=== PATIENT | female | born 1990 | race Caucasian/White ===

== ENCOUNTER 2022-05-31 19:37 | Emergency (ER) | payer OTHER ==
--- OUTSIDE RECORDS SUMMARY | 2022-05-31 19:46 | XMS REPORT | Continuity of Care Document ---
:1990 Author Organization [facility] t Address [address] [place] [address] Care Team Providers Name Role Phone Azeb Mireles PA-C Primary Care Physician Whitley Jo Attending Clinician Unavailable Avery Wood Attending Clinician Unavailable Velma Damon Attending Clinician Unavailable Kelby Cota Attending Clinician Unavailable Jake Calixto MD Attending Clinician [phone] JAKE CALIXTO Attending Clinician Unavailable DR MILTON BARBOSA Attending Clinician Unavailable Ashley Attending Clinician Unavailable Keyshawn Salazar MD Attending Clinician Sydnee Romo MD Attending Clinician [phone] Stefano BROWN, Mara Lamb Attending Clinician DR FATIMAH BARBOSA Attending Clinician Unavailable , DR GARCIA Attending Clinician Unavailable Kanwal Carver Attending Clinician Unavailable Whitley Jo Admitting Clinician Unavailable Physician, No Primary or Family Admitting Clinician Unavailalvaro BARBOSA, DR ROSE Admitting Clinician Unavailable Chi_Azeb Admitting Clinician Unavailable DR FATIMAH BARBOSA Admitting Clinician Unavailable , DR GARCIA Admitting Clinician Unavailable Payers Payer Name Policy Type Policy Number Effective Date Expiration Date Felipe barnard [place] [id number] 2019 ADVANTAGE (O) 00:00:00 Problems Condition Condition Condition Status Onset Resolution Last Treating Co mments Source Name Details Category Date Date Treatment Clinician Date Mixed Mixed Problem Active [place] anxiety Anxiety 8-13 da and and 00:00: [facility] depressive Depressive 00 al disorder Disorder Health [facility] Program Disease Active [facility] [address] [facility] 00:00: Hosp[facility] 00 l Urinary Urinary Problem Active 2014-11-11 M emoria tract tract 10-15 02:04:08 l infectious infectious 00:00: He rmann disease disease 00 (disorder) (disorder) Active 10/15/2014 Problem 11/11/2014 Data migrated from [employer] on 10/24/14.Pradip a migrated from [employer] on 10/24/14.Pradip a migrated from [employer] on 09/19/14. [facility] [place] Varicose Varicose Problem Active 2014-11-11 Memoria veins of veins of - 02:04:08 l lower lower 00:00: Elias extremity extremity 00 (disorder) (disorder) Active 10/04/2014 Problem 11/11/2014 Data migrated from [employer] on 10/24/14. [facility] [place] Esophagiti Esophagit Problem Active 2014-11-11 Memoria s is 6-12 02:04:08 l (disorder) (disorder) 00:00: He rmann Active 00 09/28/2014 Problem 11/11/2014 Data migrated from [employer] on 10/24/14. [facility] [place] Gastritis Gastritis Problem Active 2014-11-11 Memoria (disorder) (disorder) 6- 02:04:08 l Active 00:00: [place] 09/28/2014 00 Problem 11/11/2014 Data migrated from [employer] on 10/24/14. [facility] [place] Nausea and Nausea Problem Active 2014-11-11 Mem[facility] vomiting and 09-14 02:04:08 l (disorder) vomiting 00:00: Herm pelon (disorder) 00 Active 09/14/2014 Problem 11/11/2014 Data migrated from [employer] on 10/24/14. [facility] [place] Generalize Generaliz Problem Active 2014-11-11 Memoria d ed 08-13 02:04:08 l abdominal abdominal 00:00: Herm pelon pain pain 00 (finding) (finding) Active 08/13/2014 Problem 11/11/2014 Data migrated from [employer] on 10/24/14. [facility] [place] CHEST PAIN CHEST Diagnosis Active 2014-08-11 [facility] PAIN 08-11 15:32:00 l Active 13:00: [place] 08/11/2014 00 [place] Allergic Allergic Problem Active 2014-11-11 Mem[facility] rhinitis rhinitis 12-08 02:04:08 l (disorder) (disorder) 00:00: He rmann Active 00 12/08/2013 Problem 11/11/2014 Data migrated from [employer] on 09/15/14. [facility] [place] Disorder Disorder Problem Active 2014-11-11 Memoria of nasal of nasal 12-08 02:04:08 l cavity cavity 00:00: [place] (disorder) (disorder) 00 Active 12/08/2013 Problem 11/11/2014 Data migrated from [employer] on 09/15/14. [facility] [place] Anxiety Anxiety Problem Active 2014-11-11 Me moria disorder disorder 3-10 02:04:08 l (disorder) (disorder) 00:00: He rmann Active 00 06/26/2013 Problem 11/11/2014 Data migrated from [employer] on 10/24/14. [facility] [place] Problem Active 2014-11-11 Memoria examinatio examinatio 1- 02:04:08 l n normal n normal 00:00: Rafael n (finding) (finding) 00 Active 05/19/2013 Problem 11/11/2014 Data migrated from [employer] on 09/15/14. [facility] [place] Problem Active 2014-11-11 Memoria care care - 02:04:08 l (regime/th (regime/th 00:00: He rmann erapy) erapy) 00 Active 11/29/2012 Problem 11/11/2014 Data migrated from [employer] on 09/15/14. [facility] [place] Anxiety Anxiety Problem Resolve 2014-11-11 M emoria (finding) (finding) d 02:04:08 l Resolved Elias Problem 11/11/2014 [facility] [place] Asthma Asthma Problem Resolve 2014-11-11 Mem oria (disorder) (disorder) d 02:04:08 l Resolved [place] Problem 11/11/2014 Childhood [facility] [place] Acute Acute Problem Resolve 2014-11-11 2014-11-11 Memoria bronchitis bronchitis d 3- 02:04:08 02:04:08 l (disorder) (disorder) 00:00: He rmann Resolved 00 06/26/2013 Problem 11/11/2014 Data migrated from [employer] on 10/24/14. [facility] [place] Patient Patient Problem Resolve 2014-11-11 2014-11-11 Memoria currently currently d 1-15 02:04:08 02:04:08 l 00:00: Rafael n (finding) (finding) 00 Resolved 05/03/2013 Problem 11/11/2014 [facility] [place] Gastroente Gastroent Problem Resolve 2014-11-11 2014-11-11 Memoria ritis eritis d 12-17 02:04:08 02:04:08 l (disorder) (disorder) 00:00: He rmann Resolved 00 12/18/2011 Problem 11/11/2014 Data migrated from [employer] on 11/03/14.Da ta migrated from [employer] on 11/02/14. [facility] [place] History of Past Illness Condition Condition Condition Status Onset Resolution Last Treating Co mments Source Name Details Category Date Date Treatment Clinician Date Discharge Discharge Problem 2014-08-14 2014-08-14 [place] Diagnosis: Diagnosis: 4-25 01:10:10 01:10:10 l Chest pain Chest pain 05:00: He matt 08/11/201408/14/2014 [place] Allergies, Adverse Reactions, Alerts Allergy Allergy Status Severity Reaction(s) Onset Inactive Treating Comm ents Source Name Type Date Date Clinician No Known DA Active [facility] 00 [facility] No Known DA Active [facility]17 [facility] 00 [facility] No Known DA Active [facility]: [facility] 00 [facility] No Known DA Active [facility] 7[facility]01 [facility] 00:[facility]: [facility] 00 [facility] No Known DA Active [facility]ie 2-13 [place] 00:[facility]: Health 00 are [place] No Known DA Active U 2013-04 [facility] 2-29 [facility] 00:[facility]: [facility]osp[facility] 00 [facility] NO KNOWN Allergy Active [facility] No Known DA Active [facility] s Family History Family Member Diagnosis Comments Start Date Stop Date Source Maternal grandmother Heart block [facility] Natural mother Rheum arthritis [facility] Social History Social Habit Start Date Stop Date Quantity Comments Source History of Cigarette Smoker Methodis t tobacco use Hospital History SDOH [facility] Alcohol Frequency Medical Center History SDOH [facility] Alcohol Std Medical Cente r Drinks History SDOH [facility] Alcohol Binge Medical Tristen ter History SDOH 2021-04-25 2021-04-[address] [facility] Alcohol Comment 00:00:00 00:00:00 Medical C enter Tobacco Comment 2021-04-25 2021-04-[address] [facility] 00:[facility]00 00:00:00 Medical Center Alcohol intake 2020-11-20 2020-11-20 Ex-drinker Taoist 00:00:00 00:00:00 (finding) Hospital Tobacco use and 2017-09-22 2017-09-22 Smokeless tobacco Me thodist exposure 00:00:00 00:00:00 non-user Hospital Sex Assigned At [birth year] Taoist 00:00:00 00:00:00 Hospital Smoking Status Start Date Stop Date Source Heavy Tobacco Smoker Patricio grande [facility] Ex-smoker 2017-09-22 00:00:00 2017-09-22 00:00:00 [facility] Social History 2014-08-11 20:09:21 [facility] Medications Ordered Filled Start Stop Current Ordering Indication Dosage Frequency Signature Comments Components Source Medication Medication Date Date Medication? Clinician (SIG) Name Name lamoTRIgine 2021-0 Yes 100mg QD Take [address] (LaMICtal) 1-08 [facility] 100 MG 09:50: mouth Medical tablet 57 daily. [place] traZODone 2021-0 Yes 150mg QD Take [address] (DESYREL) 1-08 mg by [facility] 150 MG 09:50: mouth Medical tablet 57 nightly. [place] busPIRone 2021-0 Yes 15mg Q.[id number] Take [address] (BUSPAR) 15 1-08 [id number] by mouth 3 [facility] MG tablet 09:50: 3D (three) Medic al 57 times Center daily. buPROPion 2021-0 Yes 300mg QD Take [address] (WELLBUTRIN 1-08 mg by [facility] XL) 300 MG 09:50: mouth Medica l 24 hr 57 daily. Center tablet clonazePAM 2021-0 Yes .5mg Take 0.[address] (KlonoPIN) 1-08 mg by [facility] 0.5 MG 09:50: mouth 2 Medical tablet 57 (two) Center times daily as needed for Anxiety. lamoTRIgine 2-0 Yes 100mg QD Take [address] (LaMICtal) 1-08 mg by [facility] 100 MG 09:50: mouth Medical tablet 57 daily. Center traZODone 2-0 Yes 150mg QD Take [address] (DESYREL) 1-08 mg by [facility] 150 MG 09:50: mouth Medical tablet 57 nightly. [place] busPIRone 2022-0 Yes 15mg Q.[id number] Take [address] (BUSPAR) 15 1-08 [id number] by mouth 3 [facility] MG tablet 09:50: 3D (three) Medic al 57 times Center daily. buPROPion 2022-0 Yes 300mg QD Take [address] (WELLBUTRIN 1-08 mg by [facility]ukes XL) 300 MG 09:50: mouth Medica l 24 hr 57 daily. Center tablet clonazePAM 2022-0 Yes .5mg Take 0.[address] (KlonoPIN) 1-08 mg by [facility]ukes 0.5 MG 09:50: mouth 2 Medical tablet 57 (two) Center times daily as needed for Anxiety. lamoTRIgine 2022-0 Yes 100mg QD Take [address] (LaMICtal) 1-08 mg by [facility] 100 MG 09:50: mouth Medical tablet 57 daily. Center traZODone 2022-0 Yes 150mg QD Take [address] (DESYREL) 1-08 mg by [facility] 150 MG 09:50: mouth Medical tablet 57 nightly. Center busPIRone 2022-0 Yes 15mg Q.[id number] Take [address] (BUSPAR) 15 1-08 [id number] by mouth 3 [facility] MG tablet 09:50: 3D (three) Medic al 57 times Center daily. buPROPion 2022-0 Yes 300mg QD Take [address] (WELLBUTRIN 1-08 mg by [facility]ukes XL) 300 MG 09:50: mouth Medica l 24 hr 57 daily. Center tablet clonazePAM 2-0 Yes .5mg Take 0.[address] (KlonoPIN) 1-08 mg by [facility]ukes 0.5 MG 09:50: mouth 2 Medical tablet 57 (two) Center times daily as needed for Anxiety. lamoTRIgine 2022-0 Yes 100mg QD Take [address] (LaMICtal) 1-08 mg by [facility] 100 MG 09:50: mouth Medical tablet 57 daily. Center traZODone 2022-0 Yes 150mg QD Take [address] (DESYREL) 1-08 mg by [facility]ukes 150 MG 09:50: mouth Medical tablet 57 nightly. Center busPIRone 2022-0 Yes 15mg Q.[id number] Take [address] (BUSPAR) 15 1-08 [id number] by mouth 3 [facility] MG tablet 09:50: 3D (three) Medic al 57 times Center daily. buPROPion 2022-0 Yes 300mg QD Take [address] (WELLBUTRIN 1-08 mg by [facility]ukes XL) 300 MG 09:50: mouth Medica l 24 hr 57 daily. Center tablet clonazePAM 2021-0 Yes .5mg Take 0.[address] (KlonoPIN) 1-08 mg by [facility]ukes 0.5 MG 09:50: mouth 2 Medical tablet 57 (two) Center times daily as needed for Anxiety. clonazePAM 2022-0 Yes .5mg Take 0.[address] (KlonoPIN) 1-08 mg by Lukes 0.5 MG 09:50: mouth 2 Medical tablet 57 (two) Center times daily as needed for Anxiety. lamoTRIgine 2021-0 Yes 100mg QD Take [address] (LaMICtal) 1-08 mg by [facility] 100 MG 09:50: mouth Medical tablet 57 daily. Center traZODone 2021-0 Yes 150mg QD Take [address] (DESYREL) 1-08 mg by [facility] 150 MG 09:50: mouth Medical tablet 57 nightly. Center busPIRone 2021-0 Yes 15mg Q.[id number] Take [address] (BUSPAR) 15 1-08 [id number] by mouth 3 [facility] MG tablet 09:50: 3D (three) Medic al 57 times Center daily. buPROPion 2021-0 Yes 300mg QD Take [address] (WELLBUTRIN 1-08 mg by [facility]ukes XL) 300 MG 09:50: mouth Medica l 24 hr 57 daily. Center tablet butalbital- 2020- No 1{tbl} Q4H Take 1 M ethodi acetaminoph 8-04 08-09 tablet by [facility] 00:00: 04:59 mouth Hospita (Esgic) 00 :00 every 4 l 50-325-40 (four) mg per hours as tablet needed for headaches for up to 4 days. butalbital- 2020-2020- No 1{tbl} Q4H Take 1 M ethodi acetaminoph 8-04 08-09 tablet by [facility] 00:00: 04:59 mouth Hospita (Esgic) 00 :00 every 4 l 50-325-40 (four) mg per hours as tablet needed for headaches for up to 4 days. acetaminoph 2020- [place] [id number] 1{tbl} Q6H Take 1-2 Methodi en-codeine 7-29 10-[address] (TYLENOL 00:00: 04:59 mouth Hospita WITH 00 :00 every 6 l CODEINE #3) (six) 300-30 mg hours as per tablet needed for moderate pain for up to 4 days .acute pain. acetaminoph 2020- [place] [id number] 1{tbl} Q6H Take 1-2 Methodi en-codeine 7-[address] (TYLENOL 00:00: 04:59 mouth Hospita WITH 00 :00 every 6 l CODEINE #3) (six) 300-30 mg hours as per tablet needed for moderate pain for up to 4 days .acute pain. acetaminoph 2020- [place] [id number] 1{tbl} Q6H Take 1-2 Methodi en-codeine 3-[address] (TYLENOL 00:00: 04:59 mouth Hospita WITH 00 :00 every 6 l CODEINE #3) (six) 300-30 mg hours as per tablet needed for severe pain for up to 14 days .acute pain. acetaminoph 2020- No [id number] 1{tbl} Q6H Take 1-2 Methodi en-codeine 3-[address] (TYLENOL 00:00: 04:59 mouth Hospita WITH 00 :00 every 6 l CODEINE #3) (six) 300-30 mg hours as per tablet needed for severe pain for up to 14 days .acute pain. ranitidine 2018-0 Yes 150mg Q.5D Take 150 [facility] (ZANTAC) 6-[address] 150 MG 11:41: mouth 2 Hospita tablet 46 (two) l times a day. ranitidine 2018-0 Yes 150mg Q.5D Take 150 [facility] (ZANTAC) 6-[address] 150 MG 11:41: mouth 2 Hospita tablet 46 (two) l times a day. ranitidine 2018-0 Yes 150mg Q.5D Take 150 [facility] (ZANTAC) 6-[address] 150 MG 11:41: mouth 2 Hospita tablet 46 (two) l times a day. ranitidine 2018-0 Yes 150mg Q.5D Take 150 [facility] (ZANTAC) 6-[address] 150 MG 11:41: mouth 2 Hospita tablet 46 (two) l times a day. ranitidine Yes 150mg Q.5D Take 150 [facility] (ZANTAC) 6-[address] 150 MG 11:41: mouth 2 Hospita tablet 46 (two) l times a day. ranitidine Yes 150mg Q.5D Take 150 [facility] (ZANTAC) 6-[address] 150 MG 11:41: mouth 2 Hospita tablet 46 (two) l times a day. ranitidine Yes 150mg Q.5D Take 150 [facility] (ZANTAC) 6-[address] 150 MG 11:41: mouth 2 Hospita tablet 46 (two) l times a day. Saline No Notes: Memoria Flush 0.9% 4-25 (Same as: l 19:37: BD [place] 00 Posiflush) [place] Fe [place]a Fe No [place]uro[place]a [place] 1.5/30 (28) 1.5/30 (28) Fe 1.5/30 da 1.5 mg-30 1.5 mg-30 (28) 1.5 E [facility]iscop mcg (21)/75 mcg (21)/75 mg-30 mcg al mg (7) mg (7) (21)/75 mg Healt h tablet tablet (7) tablet Outre ac h Program bupropion bupropion No bupropion [place] HCl XL 300 HCl XL 300 HCl XL 300 da mg 24 hr mg 24 hr mg 24 hr Epi scop tablet, tablet, tablet, al extended extended extended Hea lth release release release Outrea c TAKE 1 TAKE 1 TAKE 1 h TABLET BY TABLET BY TABLET BY Program MOUTH EVERY MOUTH EVERY MOUTH MORNING MORNING EVERY MORNING buspirone buspirone No buspirone [place] 15 mg 15 mg 15 mg da tablet TAKE tablet TAKE tablet [facility] 1 TABLET BY 1 TABLET BY TAKE 1 al MOUTH THREE MOUTH THREE TABLET BY Health TIMES DAILY TIMES DAILY MOUTH Outreac THREE h TIMES Program DAILY Celebrex Celebrex No 1capsul Q1D Celebrex [place] 200 mg 200 mg e(s) 200 mg da capsule capsule capsule [facility] p Take 1 Take 1 Take 1 al capsule capsule capsule Health every day every day every day Outreac by oral by oral by oral h route as route as route as Pro gram needed. for needed. for needed. pain pain for pain clonazepam clonazepam No clonazepam [place] 0.5 mg 0.5 mg 0.5 mg da tablet TAKE tablet TAKE tablet [facility] 1 TABLET BY 1 TABLET BY TAKE 1 al MOUTH TWICE MOUTH TWICE TABLET BY Health DAILY DAILY MOUTH Outrea c NEEDED FOR NEEDED FOR TWICE h SEVERE SEVERE DAILY Program ANXIETY AND ANXIETY AND NEEDED FOR PANIC PANIC SEVERE ATTACKS ATTACKS ANXIETY AND PANIC ATTACKS lamotrigine lamotrigine No lamotrigin [place] 100 mg 100 mg e 100 mg da tablet TAKE tablet TAKE tablet [facility] 1 TABLET BY 1 TABLET BY TAKE 1 al MOUTH TWICE MOUTH TWICE TABLET BY Health DAILY DAILY MOUTH Outreac TWICE h DAILY Program meloxicam meloxicam No meloxicam [place] 7.5 mg 7.5 mg 7.5 mg da tablet TAKE tablet TAKE tablet [facility] 1 TABLET BY 1 TABLET BY TAKE 1 al MOUTH TWICE MOUTH TWICE TABLET BY Health DAILY DAILY MOUTH Outrea c NEEDED FOR NEEDED FOR TWICE h PAIN PAIN DAILY Program NEEDED FOR PAIN Nexplanon Nexplanon No Nexplanon [place] 68 mg 68 mg 68 mg da subdermal subdermal subdermal [facility] implant implant implant al Health Outreac h Program tamoxifen tamoxifen No tamoxifen [place] 10 mg 10 mg 10 mg da tablet TAKE tablet TAKE tablet [facility] 1 TABLET BY 1 TABLET BY TAKE 1 al MOUTH TWICE MOUTH TWICE TABLET BY Health DAILY FOR DAILY FOR MOUTH Outr eac 10 DAYS 10 DAYS TWICE h DAILY FOR Program 10 DAYS trazodone trazodone No trazodone [place] 100 mg 100 mg 100 mg da tablet TAKE tablet TAKE tablet [facility] 1 AND 1/2 1 AND 1/2 TAKE 1 AND al TABLETS BY TABLETS BY 1/2 Hea [facility] MOUTH AT MOUTH AT TABLETS BY O [facility] BEDTIME BEDTIME MOUTH AT h BEDTIME Program Immunizations Ordered Immunization Filled Immunization Date Status Commen ts Source Name Name influenza, influenza, 2020-04-01 Completed [place] injectable, injectable, 15:22:00 [facility] quadrivalent, quadrivalent, Outreach Program preservative free preservative free Tdap Tdap 2015-04-19 Completed [place] 00:00:00 [facility] Vital Signs Vital Name Observation Time Observation Value Comments Source HEIGHT 2021-04-25 17:42:00 162.6 cm WEIGHT 2021-04-25 17:42:00 70.761 kg HEIGHT 2021-04-25 17:42:00 162.6 cm WEIGHT 2021-04-25 17:42:00 70.761 kg Height 2021-04-10 18:16:00 165.1 CM Weight 2021-04-10 18:16:00 70.3 KG BP Diastolic 2021-01-24 00:00:00 80 mm[Hg] [place] [facility] Height 2021-01-24 00:00:00 65 [in_i] [place] [facility] BMI (Body Mass 2021-01-24 00:00:00 25.4 kg/m2 [facility] psychiatric nursing assistant Index) [facility] BP Systolic 2021-01-24 00:00:00 113 mm[Hg] [place] [facility] Body Weight 2021-01-24 00:00:00 2438 [oz_av] [place] [facility] BP Diastolic 2020-08-14 00:00:00 78 mm[Hg] [place] [facility] Height 2020-08-14 00:00:00 65 [in_i] [place] [facility] BMI (Body Mass 2020-08-14 00:00:00 25.5 kg/m2 [facility] psychiatric nursing assistant Index) [facility] BP Systolic 2020-08-14 00:00:00 126 mm[Hg] [place] [facility] Body Weight 2020-08-14 00:00:00 2450 [oz_av] [place] [facility] BP Diastolic 2020-04-01 00:00:00 77 mm[Hg] [place] [facility] Height 2020-04-01 00:00:00 65 [in_i] [place] [facility] BMI (Body Mass 2020-04-01 00:00:00 26.6 kg/m2 [place] [facility] assistant Index) [facility] BP Systolic 2020-04-01 00:00:00 113 mm[Hg] [place] [facility] Body Weight 2020-04-01 00:00:00 2560 [oz_av] [place] [facility] BP Diastolic 2019-12-29 00:00:00 82 mm[Hg] [place] [facility] Height 2019-12-29 00:00:00 65 [in_i] [place] [facility] BMI (Body Mass 2019-12-29 00:00:00 26 kg/m2 [place] [facility] nursing assistant Index) [facility] BP Systolic 2019-12-29 00:00:00 117 mm[Hg] [place] [facility] Body Weight 2019-12-29 00:00:00 2499 [oz_av] [place] [facility] Height 2019-12-15 10:31:00 165.1 CM Weight 2019-12-15 10:31:00 72.57 KG Weight 2019-11-27 10:35:00 72.57 KG Height 2019-11-27 10:35:00 165.1 CM BP Diastolic 2019-11-01 00:00:00 73 mm[Hg] [place] [facility] Height 2019-11-01 00:00:00 65 [in_i] [place] [facility] BMI (Body Mass 2019-11-01 00:00:00 24.4 kg/m2 [place] [facility] nursing assistant Index) [facility] BP Systolic 2019-11-01 00:00:00 103 mm[Hg] [place] [facility] Body Weight 2019-11-01 00:00:00 2344 [oz_av] [place] [facility] Systolic blood 2021-04-26 11:16:00 113 mm[Hg] [facility] Diastolic blood 2021-04-26 11:16:00 73 mm[Hg] [facility] Heart rate 2021-04-26 11:16:00 78 /min [facility] Respiratory rate 2021-04-26 11:16:00 18 /min [facility] Oxygen saturation in 2021-04-26 11:16:00 99 /min [facility] Arterial blood by Medical Ce nter Pulse oximetry Body temperature 2021-04-26 09:19:00 35.67 Sandra [facility] Body height 2021-04-25 17:42:00 162.6 cm [facility] Body weight 2021-04-25 17:42:00 70.761 kg [facility] BMI 2021-04-25 17:42:00 26.78 kg/m2 [facility] Systolic blood 2020-11-21 03:49:00 122 mm[Hg] [facility] pressure Diastolic blood 2020-11-21 03:49:00 69 mm[Hg] [facility] pressure Heart rate 2020-11-21 03:49:00 77 /min [facility] Respiratory rate 2020-11-21 03:49:00 16 /min [facility] Oxygen saturation in 2020-11-21 03:49:00 97 /min Arterial blood by Pulse oximetry Body temperature 2020-11-21 00:33:05 36.94 Sandra [facility] Body height 2020-06-25 14:47:00 165.1 cm [facility] Body weight 2020-06-25 14:47:00 68.04 kg [facility] BMI 2020-06-25 14:47:00 24.96 kg/m2 [facility] Systolic (mm Hg) 2014-08-11 21:28:00 Jayy yazan [place] Diastolic (mm Hg) 2014-08-11 21:28:00 Mem orial [place] Heart Rate 2014-08-11 21:28:[address] [facility] Respitory Rate 2014-08-11 21:28:00 Masoodori al Elias Temperature Oral (F) 2014-08-11 21:28:00 98.8 F [facility] [place] Height 2014-08-11 18:57:[address] [facility] BMI Calculated 2014-08-11 18:57:00 Simon Sher Weight 2014-08-11 18:57:00 [facility] 2014-08-11 18:57:00 Parviz Griffin Systolic (mm Hg) 2014-08-11 18:57:00 Jayy Griffin Diastolic (mm Hg) 2014-08-11 18:57:00 Mem katie Griffin Temperature Oral (F) 2014-08-11 18:57:00 99.1 F [facility] Respitory Rate 2014-08-11 18:57:00 Simon ramsey [facility]as Procedures Procedure Date / Time Performing Clinician Source Performed ECG 12-LEAD 2021-04-25 21:53:06 [facility] ECG 12-LEAD 2021-04-25 21:53:06 Unknown, H[facility] ED ECG INTERPRETATION 2021-04-25 21:53:00 [facility] SARS-COV2/RT-PCR ([facility] 2021[facility]25 [facility] CBC W/PLT COUNT & AUTO 2021-04-25 18:15:00 [facility] DIFFERENTIAL [facility] BASIC METABOLIC PANEL (7) 2021-04-25 18:15:00 [facility] SALICYLATE LEVEL 2021-04-25 18:15:[address] [facility] W/PLT COUNT & AUTO 2021-04-25 18:15:00 [facility] DIFFERENTIAL [facility] ETHANOL 2021-04-25 [facility] AC[facility] 2021-04-25 18:13:00 [facility] HCG, SERUM, QUALITATIVE 2021-04-25 18:13:[address] [facility] REPORT OF PROCEDURE - 2021-04-25 00:00:00 Provider, [facility] ENDOSCOPY SCAN [facility] CT HEAD WO CONTRAST 2020-11-21 03:32:10 Severo Bonilla [facility] ECG ED PRELIMINARY 2020-10-30 02:34:21 Severo Bonilla [facility] INTERPRETATION URINE CULTURE 2020-10-30 02:06:00 Severo Bonilla [facility] XR CHEST 1 VW PORTABLE 2020-10-30 01:39:06 [facility] URINALYSIS SCREEN AND 2020-10-30 01:33:[address] [facility] [address] [facility] MICROSCOPY, WITH REFLEX TO CULTURE URINE DRUGS OF ABUSE 2020-10-30 01:33:00 [facility] hospital[facility] SCREEN HCG QUALITATIVE, SERUM 2020-10-30 01:30:00 Sydnee Romo [facility] SCREEN Fabrice COMPREHENSIVE METABOLIC 2020-10-30 01:25:00 Severo [facility] PANEL HC COMPLETE BLD COUNT 2020-10-30 01:25:00 [facility] W/AUTO DIFF TROPONIN 2020-10-30 01:25:00 [facility] B NATRIURETIC PEPTIDE 2020-10-30 01:25:00 [facility] Center[facility]yn [facility] CREATINE KINASE, TOTAL 2020-10-30 01:25:00 [facility] ([facility]) ESTIMATED GFR 2020-10-30 01:25:00 [facility] ECG 12-LEAD 2020-10-29 23:39:24 [facility] BASIC METABOLIC PANEL 2020-06-25 16:00:[address] [facility] ESTIMATED GFR 2020-06-25 16:00:00 [facility] COMPLETE BLD COUNT 2020-06-25 16:00:[address] [facility] W/AUTO DIFF Delivery 2017-09-22 00:00:00 [facility] Delivery 2013-05-10 00:00:00 [facility] Tooth extraction, 2011-04-19 00:00:00 Parviz beatty Plan of Care Planned Activity Planned Date Details Comments Source Future Scheduled 2025-04-19 DTAP/TDAP/TD VACCINES [facility] 00:00[facility]00 (2 - Td or Tdap) Medical Tristen ter [code = DTAP/TDAP/TD VACCINES (2 - Td or Tdap)] Future Scheduled 2025-04-19 DTAP/TDAP/TD VACCINES [facility] 00:00:00 (2 - Td or Tdap) Medical Tristen ter [code = DTAP/TDAP/TD VACCINES (2 - Td or Tdap)] Future Scheduled 2025-04-19 DTAP/TDAP/TD VACCINES [facility] 00:00:00 (2 - Td or Tdap) Medical Tristen ter [code = DTAP/TDAP/TD VACCINES (2 - Td or Tdap)] Future Scheduled 2025-04-19 DTAP/TDAP/TD VACCINES [facility] 00:00:00 (2 - Td or Tdap) Medical Tristen ter [code = DTAP/TDAP/TD VACCINES (2 - Td or Tdap)] Future Scheduled 2025-04-19 [facility] 00:00:00 (2 - Td or Tdap) Medical Tristen ter [code = DTAP/TDAP/TD VACCINES (2 - Td or Tdap)] Future Scheduled 2022-04-11 COVID-19 VACCINE (#1) [facility] Test 15:06:52 [code = COVID-19 VACCINE (#1)] Future Scheduled 2022-04-11 Hepatitis C screening [facility] Test 15:06:52 (procedure) [code = 780722626] Future Scheduled 2022-04-11 [facility] Test 15:06:52 malignant neoplasm of cervix (procedure) [code = 853889494] Future Scheduled 2022-04-11 INFLUENZA VACCINE Method ist Hospital Test 15:06:52 [code = INFLUENZA VACCINE] Future Scheduled 2022-04-11 COVID-19 VACCINE (#1) [facility] Test 15:06:52 [code = COVID-19 VACCINE (#1)] Future Scheduled 2022-04-11 Hepatitis C screening [facility] Test 15:06:52 (procedure) [code = 489433435] Future Scheduled 2022-04-11 [facility] Test 15:06:52 malignant neoplasm of cervix (procedure) [code = 825438478] Future Scheduled 2022-04-11 INFLUENZA VACCINE Method is Hospital Test 15:06:52 [code = INFLUENZA VACCINE] Future Scheduled 2022-04-11 COVID-19 VACCINE (#1) [facility] Test 15:06:52 [code = COVID-19 VACCINE (#1)] Future Scheduled 2022-04-11 Hepatitis C screening [facility] Test 15:06:52 (procedure) [code = 274219009] Future Scheduled 2022-04-11 Screening for Test 15:06:52 malignant neoplasm of cervix (procedure) [code = 380031060] Future Scheduled 2022-04-11 INFLUENZA VACCINE Method [facility] Test 15:06:52 [code = INFLUENZA VACCINE] Future Scheduled 2021-12-18 HEPATITIS B VACCINES Met [facility] Test 19:24:55 (1 of 3 - 3-dose series) [code = HEPATITIS B VACCINES (1 of 3 - 3-dose series)] Future Scheduled 2021-12-18 COVID-19 VACCINE (#1) [facility] Test 19:24:55 [code = COVID-19 VACCINE (#1)] Future Scheduled 2021-12-18 Hepatitis C screening [facility] Test 19:24:55 (procedure) [code = 912455176] Future Scheduled 2021-12-18 Screening for Test 19:24:55 malignant neoplasm of cervix (procedure) [code = 859805488] Future Scheduled 2021-12-18 INFLUENZA VACCINE Method [facility] Hospital Test 19:24:55 [code = INFLUENZA VACCINE] Future Scheduled 2021-12-18 HEPATITIS B VACCINES Met [facility] Test 19:24:55 (1 of 3 - 3-dose series) [code = HEPATITIS B VACCINES (1 of 3 - 3-dose series)] Future Scheduled 2021-12-18 COVID-19 VACCINE (#1) [facility] Test 19:24:55 [code = COVID-19 VACCINE (#1)] Future Scheduled 2021-12-18 [facility] C [facility] Test 19:24:55 (procedure) [code = 635443012] Future Scheduled 2021-12-18 [facility] Test 19:24:55 malignant neoplasm of cervix (procedure) [code = 967953197] Future Scheduled 2021-12-18 INFLUENZA VACCINE Method ist Hospital Test 19:24:55 [code = INFLUENZA VACCINE] Future Scheduled 2021-12-[address] [facility] Test 00:00:00 (#1) [code = Medical Center INFLUENZA VACCINE (#1)] Future Scheduled 2021-12-[address] [facility] Test 00:00:00 (#1) [code = Medical Center INFLUENZA VACCINE (#1)] Future Scheduled 2021-12-[address] [facility] Test 00:00:00 (#1) [code = Medical Center INFLUENZA VACCINE (#1)] Future Scheduled 2021-02-19 COVID-19 VACCINE (1) [facility] 21:48:47 [code = COVID-19 VACCINE (1)] Future Scheduled 2021-02-19 [facility] 21:48:47 (procedure) [code = 664714842] Future Scheduled 2021-02-19 [facility] Test 21:48:47 malignant neoplasm of cervix (procedure) [code = 140276416] Future Scheduled 2021-02-19 INFLUENZA VACCINE Method ist Hospital Test 21:48:47 [code = INFLUENZA VACCINE] Future Scheduled 2021-02-19 COVID-19 VACCINE (1) [facility] 21:48:47 [code = COVID-19 VACCINE (1)] Future Scheduled 2021-02-19 [facility]atitis C [facility] Test 21:48:47 (procedure) [code = 046934441] Future Scheduled 2021-02-19 [facility] Test 21:48:47 malignant neoplasm of cervix (procedure) [code = 293100900] Future Scheduled 2021-02-19 INFLUENZA VACCINE Method ist Hospital Test 21:48:47 [code = INFLUENZA VACCINE] Diagnostic Test 2021-01-24 rf (rheumatoid [place] Pending 00:00:00 factor) + anti-ccp [facility] abs, serum [code = rf Outrea ch Program (rheumatoid factor) + anti-ccp abs, serum] Diagnostic Test 2021-01-24 CBC w/ auto diff [place] Pending 00:00:00 [code = CBC w/ auto [facility] diff] Outreach Progra m Diagnostic Test 2021-01-24 CMP, serum or plasma [place] Pending 00:00:00 [code = CMP, serum or [facility] plasma] Outreach Progra m Diagnostic Test 2021-01-24 TSH, serum or plasma Hou [place] Pending 00:00:00 [code = TSH, serum or [facility] plasma] Outreach Progra m Diagnostic Test 2021-01-24 vitamin B12, serum [place] [facility] Pending 00:00:00 [code = vitamin B12, [facility] serum] Outreach Progra m Diagnostic Test 2021-01-24 vitamin D, [place] Pending 00:00:00 25-hydroxy, total, [facility] serum [code = vitamin Outrea ch Program D, 25-hydroxy, total, serum] Diagnostic Test 2021-01-24 iron, serum [code = [place] Pending 00:00:00 iron, serum] [facility] Diagnostic Test 2021-01-24 ferritin, serum or [facility] Pending 00:00:00 plasma [code = [facility] ferritin, serum or Outreach Program plasma] Future Scheduled 2020-12-[address] [facility] Test 00:00:00 (#1) [code = [facility] INFLUENZA VACCINE (#1)] Future Scheduled 2020-12-[address] [facility] Test 00:00:00 (#1) [code = [facility] INFLUENZA VACCINE (#1)] Future Scheduled [address] [facility] Test 00:00:00 malignant neoplasm of Medica l Center cervix (procedure) [code = 234229641] Future Scheduled [address] [facility] Test 00:00:00 malignant neoplasm of Medica l Center cervix (procedure) [code = 124288482] Future Scheduled [address] [facility] Test 00:00:00 malignant neoplasm of Medica l Center cervix (procedure) [code = 391182753] Future Scheduled [address] [facility] Test 00:00:00 malignant neoplasm of Medica l Center cervix (procedure) [code = 666730017] Future Scheduled [address] [facility] Test 00:00:00 malignant neoplasm of Medica l Center cervix (procedure) [code = 495077889] Future Scheduled [address] [facility] Test 00:00:00 (procedure) [code = [facility] 90843512] Future Scheduled [address] [facility] Test 00:00:00 (procedure) [code = [facility] 46862287] Future Scheduled [address] [facility] Test 00:00:00 (procedure) [code = [facility] 05088647] Future Scheduled [address] [facility] Test 00:00:00 (procedure) [code = [facility] 39659006] Future Scheduled [address] [facility] Test 00:00:00 (procedure) [code = [facility] 22688931] Future Scheduled 2010 HEPATITIS C [facility]CRE[facility] 00:00:00 [code = HEPATITIS C Medical Center SCREENING] Future Scheduled 2010 HEPATITIS C [facility]CRE[facility] 00:00:00 [code = HEPATITIS C Medical Center SCREENING] Future Scheduled 2010 HEPATITIS C [facility]CRE[facility]ING [facility] Test 00:00:00 [code = HEPATITIS C Medical Center SCREENING] Future Scheduled 2010 HEPATITIS C [facility]CRE[facility] 00:00:00 [code = HEPATITIS C Medical Center SCREENING] Future Scheduled 2010 HEPATITIS C [facility]CRE[facility] 00:00:00 [code = HEPATITIS C Medical Center SCREENING] Future Scheduled [address] [facility] Test 00:00:00 Counseling and Medical Cente r Screening (12+) [code = Tobacco Cessation Counseling and Screening (12+)] Future Scheduled [address] [facility] Test 00:00:00 Counseling and Medical Cente r Screening (12+) [code = Tobacco Cessation Counseling and Screening (12+)] Future Scheduled [address] [facility] Test 00:00:00 Counseling and Medical Cente r Screening (12+) [code = Tobacco Cessation Counseling and Screening (12+)] Future Scheduled [address] [facility] Test 00:00:00 0-64 YRS (1 - PCV) Medical C enter [code = PNEUMOCOCCAL VACCINE 0-64 YRS (1 - PCV)] Future Scheduled [address] [facility] Test 00:00:00 0-64 YRS (1 of 2 - Medical C enter PPSV23) [code = PNEUMOCOCCAL VACCINE 0-64 YRS (1 of 2 - PPSV23)] Future Scheduled [address] [facility] Test 00:00:00 0-64 YRS (1 of 2 - Medical C enter PPSV23) [code = PNEUMOCOCCAL VACCINE 0-64 YRS (1 of 2 - PPSV23)] Future Scheduled [address] [facility] Test 00:00:00 0-64 YRS (1 - PCV) Medical C enter [code = PNEUMOCOCCAL VACCINE 0-64 YRS (1 - PCV)] Future Scheduled [address] [facility] Test 00:00:00 0-64 YRS (1 - PCV) Medical C enter [code = PNEUMOCOCCAL VACCINE 0-64 YRS (1 - PCV)] Future Scheduled 1997 COVID-19 VACCINE (1) [facility] Test 00:00:00 [code = COVID-[address] VACCINE (1)] Future Scheduled 1997 COVID-19 VACCINE (1) [facility] Test 00:00:00 [code = COVID-[address] VACCINE (1)] Future Scheduled 1992 COVID-19 VACCINE (#1) [facility] 00:00:00 [code = COVID-[address] VACCINE (#1)] Future Scheduled 1992 COVID-19 VACCINE (#1) [facility] 00:00:00 [code = COVID-[address] VACCINE (#1)] Future Scheduled 1992 COVID-19 VACCINE (#1) [facility] 00:00:00 [code = COVID-[address] VACCINE (#1)] Encounters Start End Encounter Admission Attending Care Care Encounter Source Date/Time Date/Time Type Type Clinicians Facility Department ID 2021-12-03 2021-12-03 Outpatient ELKE Jo, [facility] [id number] [facility] 14:55:00 14:55:00 Whitley 16 [facility] 2021-12-02 2021-12-03 Emergency EM Israel, [facility] [id number] [facility] 19:07:00 02:13:00 Avery Salcedo [facility] 2021-10-17 2021-10-17 Emergency EM Marge Jensen, [facility] [id number] [facility] 08:19:00 14:58:00 Velma [id number] [facility] 2021-10-17 2021-10-17 Emergency EM Marge Jensen, [facility] [id number] [facility] 08:19:00 14:58:00 Velma 63 [facility] 2021-05-31 2021-05-31 Emergency EM Cipriano, [facility] [id number] [facility] 20:29:00 23:40:00 Kelby Margaret [facility] 2021-05-19 2021-05-19 Outpatient [facility] PIJFIEO [facility] 00:00:00 00:00:00 [facility]-2021-05-13 2021-05-13 Outpatient [facility]H COH PIJFIEO [facility] 00:00:00 00:00:00 [facility]-2021-04-28 2021-04-28 Outpatient [facility]H CO[facility] PIJFIEO [facility] 00:00:00 00:00:00 [facility]2021-04-25 2021-04-26 Emergency ER Permenter, [facility] [id number] 17:31:00 11:31:00 [facility] 2021-04-25 2021-04-26 Emergency ER PERMENTER, [facility] Emergency [id number] [facility] 17:31:00 11:31:00 [facility] 2021-04-25 2021-04-[address] [facility] [id number] 00:00:00 00:00:00 [facility] 2021-04-10 2021-04-10 Outpatient Enrike BARBOSA [facility] [id number] [facility] 18:00:00 19:43:00 [facility] 2021-01-27 2021-01-27 Outpatient Chi_Joshleslie [facility] [id number] [id number] [place] 10:59:00 10:59:00 [facility] 2021-01-24 2021-01-24 Azeb Ramirez [facility] [place] - [address]- [id number] [place] 00:00:00 00:00:00 DENIS Mireles: Patricio 1008 d a [id number] [facility] [address], [facility] [place] Program [address] , Ph. 2020-11-20 2020-11-20 Emergency Salazar, Keyshawn 1.2.840.1 [id number] Methodi 21:05:00 23:10:[address] 3.430.2.7 Hospit a .3.554521 l .8 2020-11-20 2020-11-20 Travel 1.2.840.1 1.2.392.004 [id number] Methodi 00:00:00 00:00:[address] 3.430.2.7 0.2.7.3.698 spita .3.714897 084.8 l .8 2020-10-29 2020-10-29 Emergency Romo, 1.2.840.1 [id number] Methodi 19:59:00 21:58:[address] Fabrice 3.430.2.7 Hospit a .3.600207 l .8 2020-10-29 2020-10-29 Travel 1.2.840.1 1.2.174.324 [id number] Methodi 00:00:00 00:00:[address] 3.430.2.7 0.2.7.3.698 spita .3.981018 084.8 l .8 2020-08-21 2020-08-21 Outpatient Ashley [facility]TERS [facility] 831 [place] 11:57:00 11:57:00 0505 [facility] 2020-08-15 2020-08-15 Outpatient Ashley VANHOP [facility] 831 [place] 02:06:00 02:06:00 0429 [facility] 2020-08-14 2020-08-14 Azeb HuaHasmukh [facility] [place] - [id number] [place] 00:00:00 00:00:00 DENIS Mireles: Patricio 0428 d a [id number] [place] [facility] A, [facility] [place] Program [address] , Ph. 2020-06-25 2020-06-25 Emergency [facility], 1.2.840.1 [id number] Methodi 08:47:00 11:11:00 Mara Lamb [address].1.[address] 3.430.2.7 Hospit a .3.405380 l .8 2020-04-05 2020-04-05 Outpatient Ashley UTHOP [facility] 831 [place] 09:11:00 09:11:00 1218 [facility] 2020-04-01 2020-04-01 Azeb HuaHasmukh [facility] [place] - [id number] [place] 00:00:00 00:00:00 DENIS Mireles: Patricio 1214 d a [id number] [place] [facility] [place] [facility] [phone] , Ph. 2019-12-29 2019-12-29 Azeb HuaHasmukh [facility] [place] - [id number] [place] 00:00:00 00:00:00 DENIS Mireles: [place] 0911 d a [id number] [place] [facility] [place] [facility] [address] , Ph. 2019-12-15 2019-12-15 Outpatient E FATIMAH BARBOSA [facility] [id number] [facility] 10:31:00 13:10:00 Medica l Center 2019-11-27 2019-11-27 Outpatient E BARBOSAFATIMAH BARKLEY [facility] [id number] [facility] 10:21:00 13:30:00 Medica l Center 2019-11-01 2019-11-01 Azeb Gundersonlaly_Azeb [facility] [place] - [id number] [place] 00:00:00 00:00:00 DENIS Mireles: Patricio 0715 d a [id number] [place] [facility], [facility] [place] Program [address] , Ph. 2019-10-31 2019-10-31 Outpatient Lezak_Azeb WATTERS [facility] [id number] [place] 12:32:00 12:32:00 0714 [facility] 2019-10-18 2019-10-18 Outpatient Lezak_Azeb WAT[facility]S [facility] 831 [place] 11:21:00 11:21:00 0701 [facility] 2018-12-12 2018-12-12 Outpatient E FAMILIA [facility] [id number] [facility] 16:38:00 19:39:00 [place] [facility] [place] 2018-03-23 2018-03-23 Outpatient E BABROSAFATIMAH BARKLEY [facility] [id number] [facility] 10:30:00 11:30:00 Medica l Center 2017-12-12 2017-12-12 Outpatient E SHEIKH [facility] [id number] [facility] 11:47:00 14:45:00 WASIM [facility] 2017-11-08 2017-11-08 Outpatient Swords, SWOBGYN SWOBGYN [id number] [place] 13:22:00 13:22:[address] [facility] 2017-11-05 2017-11-05 Outpatient Swords, SWOBGYN SWOBGYN [id number] [facility] 11:40:00 11:40:[address] [facility] [address] OBGYN 2017-11-05 2017-11-05 Outpatient Swords, SWOBGYN SWOBGYN [id number] [facility] 11:08:00 11:08:[address] [facility] [address] OBGYN 2017-10-11 2017-10-11 Outpatient Swords, SWOBGYN SWOBGYN [id number] [facility] 15:36:00 15:36:[address] [facility] [address] OBGYN 2017-09-22 2017-09-22 Outpatient Swords, SWOBGYN SWOBGYN [id number] [facility] 09:48:00 09:48:00 [facility] OBGY 2017-09-15 2017-09-15 Outpatient Swords, SWOBGYN SWOBGYN [id number] [facility] 14:35:00 14:35:00 [facility] OBGYN 2017-09-06 2017-09-06 Outpatient Swords, SWOBGYN SWOBGYN [id number] [facility] 15:06:00 15:06:00 [facility] OBGYN 2017-08-30 2017-08-30 Outpatient Swords, SWOBGYN SWOBGYN [id number] [facility] 14:10:00 14:10:00 [facility] OBGY 2017-08-23 2017-08-23 Outpatient Swords[facility] [id number] 15:[facility] 15:08:[address] [facility] [address] OBGYN 2017-08-09 2017-08-09 Outpatient Swords, SWOBGYN SWOBGYN [id number] [place] 13:54:00 13:54:[address] [facility] [address] OBGYN 2017-07-26 2017-07-26 Outpatient Swords, SWOBGYN SWOBGYN [id number] [facility] 15:08:00 15:08:[address] [facility] [address] OBGYN 2017-07-12 2017-07-12 Outpatient Swords, SWOBGYN SWOBGYN [id number] [facility] 15:06:00 15:06:00 Kanwal gonzalez OBGYN 2017-05-24 2017-05-24 Outpatient Swords, SWOBGYN SWOBGYN [id number] [facility] 13:44:00 13:44:00 Kanwal gonzalez OBGYN 2017-04-26 2017-04-26 Outpatient Swords, SWOBGYN SWOBGYN [id number] [facility] 14:09:00 14:09:00 [facility] OBGYN 2017-03-29 2017-03-29 Outpatient Swords, SWOBGYN SWOBGYN [id number] [facility] 15:08:00 15:08:00 Kanwal OBGYN 2017-03-01 2017-03-01 Outpatient Swords, SWOBGYN SWOBGYN [id number] [facility] 14:58:00 14:58:[address] OBGYN 2017-02-15 2017-02-15 Outpatient Swords, SWOBGYN SWOBGYN [id number] [facility] 14:17:00 14:17:00 [facility] OBGYN 2017-02-08 2017-02-08 Outpatient Swords, SWOBGYN SWOBGYN [id number] [facility] 13:10:00 13:10:[address] OBGYN 2017-02-01 2017-02-01 Outpatient Swords, SWOBGYN SWOBGYN [id number] [facility] 15:06:00 15:06:00 Kanwal IngramGYN 2015-04-29 2015-04-29 Outpatient MHIE MHIE [id number] [facility] 14:15:00 14:15:00 07 raymond Griffin 2015-03-18 2015-03-18 Outpatient MHIE MHIE [id number] [facility] 15:15:00 15:15:00 06 raymond Griffin 2015-03-11 2015-03-11 Outpatient MHIE MHIE [id number] [facility] 16:00:00 16:00:00 05 raymond Griffin 2015-02-13 2015-02-13 Outpatient MHIE MHIE [id number] [facility] 16:00:00 16:00:00 04 raymond Griffin 2015-01-11 2015-01-11 Outpatient MHIE MHIE [id number] [facility] 14:45:00 14:45:00 03 raymond Griffin 2015-01-09 2015-01-09 Outpatient MHIE MHIE [id number] [facility] 08:00:00 08:00:00 02 l Elias 2014-12-12 2014-12-12 Outpatient MHIE MHIE [id number] [facility] 08:00:00 08:00:00 01 l Elias 2014-11-08 2014-11-09 Outpt Diag nullFlavo [facility] [id number] [facility] 16:21:00 04:59:00 Services r Outpatient 02 l [place] 2014-10-09 2014-10-10 Outpt Diag nullFlavo [facility] [id number] [facility] 13:01:00 04:59:00 Services r Outpatient 01 l [facility] [place] 2014-10-01 2014-10-02 Outpt Diag nullFlavo [facility] [id number] [facility] 13:55:00 04:59:00 Services r Outpatient 00 l [facility] [place] 2014-08-11 2014-08-11 EC nullFlavo [facility] [id number] [facility] 18:47:00 21:31:00 Emergency [facility] [place] [facility] Results Test Description Test Time Test Comments Results Result Comments Source SURGICAL 2021-12-08 17:31:00 Test Item Value Reference Range Interpretation Comme nts SURGICAL RUN (test DATE: 12/08/21 [facility] PAGE 1 RUN TIME: 1731 Specimen Inquiry RUN USER: INTERFACE code = AMY WARNER) ENT: RENA ANDREWS LOC: ANDREA U #: [id number] AGE/SX: 31/F ROOM: RE12/03/21REG DR: Whitley Suarez MD : 92 BED: DIS: STATUS: [facility] TLOC: SPEC #: [id number] RECD: 12/04/21 [facility] #: [id number] FLIP: 12/03/21-[address] [facility] [address]: Whitley Jo MD EN TERED: 12/04/21 SP TYPE: SURGICAL OTHR DR: DOES_NOT KNOW ORDERED: ANATOMIC SPEC, SPEC TRACK, [id number] COPIES TO: DOES_NOT KNOW Whitley Jo MD [address] [place] [phone] PROCEDURES: [id number] (12/04/21) TISSUES: A. CYST--OVARIAN, NONNEOPLASTIC (SIMPLE) - RIGHT OVARIAN CYST FINAL DIAGNOSIS A. OVARY, RIGHT, CYST, CYSTECTOMY: - Fragment s of benign ovarian parenchyma with hemorrhagic follicles and luteinized foci - Negative f or atypia, negative for malignancy GROSS DESCRIPTION Received in formalin, labeled with the p atient's name, medical record number and date ofbirth, designated as "right ovarian cyst," are mu ltiple irregular fragments of ludwig-brownglistening soft tissue measuring 4.0 x 3.0 x 0.4 cm in aggregate. The larger pieces aresectioned and the entire specimen is submitted in blaine settes A1-A5. (hrr 12/04/21) Technical component performed at [facility] [id number], [place] [address] Unless gross only, the diagnosis is based upon microscopic examination.Immu nohistochemistry: This test was developed and its performance characteristicsdetermined by this laboratory. It has not been approved nor does it need approval by Bud FDA. Appropriate po sitive and negative controls are reviewed and judged to beacceptable. This laborator y is certified under the Clinical Laboratory ImprovementAmendments (CLIA-88) as qualified to pe [facility] high complexity clinical laboratory testing. CLINICAL INFORMATION PELVIC PAIN CONTINUED ON NEXT PAGE RUN DATE: 12/08/21 [facility] PAGE 2 RUN TIME: 1732 Specimen Inquiry RUN USER: INTERFACE SPEC #: [id number] PATIENT: RENA ANDREWS #[id number] (Continued) ------- Signed SIGNATURE ON FILE Juan R Barth 12/08/21 1731 END OF REPORT COVID 19 Asymptomatic IH [id number] 17:08:00 Test Item Value Reference Range Interpretation Comments COVID 19 NEGATIVE NEGATIVE This test has b een Asymptomatic IH AG authorize d only for the (test code = detection ofpro teins from COVNONPUIAG) SARS-CoV-2, not for any other viruses orpathogens. Ne gative results should be treated as presumptive andconfirmed wi th a molecular assay , if necessary for patientmanageme nt. Negative result s do not rule out COVID- 19 andshould not b e used as the sole basis for treatment orpat ient management deci sions, including infec tion controldecision s. Negative result s should be considered i n thecontext of a patient's recent exposure s, history and thepresence of clinical signs and symptoms consis tent withCOVID-19. T his test has not been FD A cleared or approved; th e test hasbeen authori pedro by FDA under an Emerge ncy Use Authorization(E UA) for use by maryato nilsa certified under the CLIA thatmeet the re quirements to perform mode rate, high or waivedcomple xity tests. This radha t is authorized for use at thePoint of Car e (POC), i.e., in patien t care settingsoperati ng under a CLIA Certificat e of Waiver, Certifi reinaldo ofCompliance, o r Certificate of Accreditation. This test is only authori pedro for the duration of thedeclaration that circumstances e xist justifying theauthorizatio n of emergency use o f in vitro diagnostic test sfor detection and/o r diagnosis of CO VID-19 under Zujkcwc87 4(b)(1) of the Act, 21 U.S .C. 360bbb-3(b)(1), unless theauthorizatio n is terminated or r evoked sooner. HCG SERUM [id number] 17:08:00 Test Item Value Reference Range Interpretation Comments HCG SERUM QUAL (test code = HCGQL) NEGATIVE PROTHROMBIN [id number] 17:08:00 Test Item Value Reference Range Interpretation Comments PROTHROMBIN TIME PATIENT (test code 11.6 secs 10.1-12.3 N = PTP) THROMBOPLASTIN TIME [id number] 17:08:00 Test Item Value Reference Range Interpretation Comments THROMBOPLASTIN TIME PARTIAL (test 30.1 secs 22-38 N code = PTT) CBC W/AUTO [id number] 17:00:00 Test Item Value Reference Range Interpretation Comments WHITE BLOOD CELL (test code = WBC) 7.6 K/mm3 6.5-12.3 N RED BLOOD CELL (test code = RBC) 4.18 M/mm3 3.51-4.69 N HEMOGLOBIN (test code = HGB) 12.7 g/dL 10.1-13.8 N HEMATOCRIT (test code = HCT) 39.3 % 32.5-41.8 N MEAN CELL VOLUME (test code = MCV) 94.0 fL 84.6-96.6 N MEAN CELL HGB (test code = MCH) 30.4 pg 27.3-33.9 N MEAN CELL HGB CONCETRATION (test 32.3 gm/dL 32.0-34.2 N code = MCHC) RED CELL DISTRIBUTION WIDTH (test 12.4 % 12.2-16.3 N code = RDW) PLATELET COUNT (test code = PLT) 260 K/mm3 134-363 N MEAN PLATELET VOLUME (test code = 10.7 fL 9.2-12.7 N MPV) NEUTROPHIL % (test code = NT%) 68.6 % 57.9-77.3 N LYMPHOCYTE % (test code = LY%) 22.8 % 14.5-29.7 N MONOCYTE % (test code = MO%) 6.4 % 3.6-10.2 N EOSINOPHIL % (test code = EO%) 1.3 % 0.0-3.0 N BASOPHIL % (test code = BA%) 0.5 % 0.1-0.9 N NEUTROPHIL # (test code = NT#) 5.2 K/mm3 LYMPHOCYTE # (test code = LY#) 1.7 K/mm3 MONOCYTE # (test code = MO#) 0.5 K/mm3 EOSINOPHIL # (test code = EO#) 0.10 K/mm3 BASOPHIL # (test code = BA#) 0.0 K/mm3 RBC MORPHOLOGY REQUIRED (test code NORMAL NORMAL = RBCM) PLATELET MORPHOLOGY REQUIRED (test NORMAL NORMAL code = PLTMR) DRUGS OF ABUSE [id number] 21:42:00 Test Item Value Reference Range Interpretation Comments UR COCAINE (test code = NEGATIVE NEGATIVE DETE CTION CUT OFF: COCAU) 150 ng/mL UR CANNABINOIDS (test NEGATIVE NEGATIVE DETECT ION CUT OFF: 50 code = CANU) ng/mL UR AMPHETAMINE (test POSITIVE NEGATIVE A RESULTS CALLED TO SUSAN code = AMPHU) AGUREAD BACK & CONFIRMED? YBY [id number] RESULTS SE NT FOR CONFIRMATION OF SCREEN RESULTSS EE OTHER SPECIMEN FOR CONFIRMATION RE SULTS These results a re to be used only fo r medical (ie,treatment) purposes. Uncon firmed screening resul ts must notbe used for non-medical pur poses (eg, employment testing)DETECTI ON CUT OFF: 500 ng/mL UR BARBITURATE QUAL NEGATIVE NEGATIVE DETECTIO N CUT OFF: (test code = BARBQLU) 200 ng /mL UR BENZODIAZEPINE (test NEGATIVE NEGATIVE DETE CTION CUT OFF: code = BENZU) 150 ng/mL UR OPIATES QUAL (test NEGATIVE NEGATIVE DETECT ION CUT OFF: code = OPIAQLU) 100 ng/mL UR PHENCYCLIDINE (PCP) NEGATIVE NEGATIVE DETEC TION CUT OFF: 25 (test code = PHENCU) ng/mL BASIC METABOLIC [id number] 20:32:00 Test Item Value Reference Range Interpretation Comments SODIUM (test code = NA) 139 mEq/L 135-145 N POTASSIUM (test code = K) 3.4 mEq/L 3.5-5.0 L CHLORIDE (test code = CL) 103 mEq/L 100-115 N CARBON DIOXIDE (test code = CO2) 28 mEq/L 22-31 N ANION GAP (test code = GAP) 11.40 10-20 N GLUCOSE (test code = GLU) 106 mg/dL 65-110 N BLOOD UREA NITROGEN (test code = 8 mg/dL 7-18 N BUN) GLOMERULAR FILTRATION RATE (test 74 ml/min >60 N code = GFR) CREATININE (test code = CREAT) 0.9 mg/dL 0.5-1.0 N CALCIUM (test code = CA) 8.7 mg/dL 8.4-10.2 N LIVER [id number] 20:32:00 Test Item Value Reference Range Interpretation Comments TOTAL PROTEIN (test code = PROT) 7.5 gm/dL 6.3-8.2 N ALBUMIN (test code = ALB) 4.2 gm/dL 3.4-4.8 N BILIRUBIN TOTAL (test code = BILT) 0.3 mg/dL 0.2-1.0 N BILIRUBIN DIRECT (test code = 0.1 mg/dL <0.2 N BILD) SGOT/AST (test code = AST) 17 units/L 15-37 N SGPT/ALT (test code = ALT) 18 units/L 12-78 N ALKALINE PHOSPHATASE TOTAL (test 61 units/L 46-116 N code = ALKP) [id number] 20:32:00 Test Item Value Reference Range Interpretation Comments LIPASE (test code = LIP) 104 units/L 73-393 N UA RFLX MICR CULT IF [id number] 19:57:00 Test Item Value Reference Range Interpretation Comments UA COLOR (test code = COLU) STRAW YELLOW UA APPEARANCE (test code = CLEAR CLEAR APPU) UA GLUCOSE DIPSTICK (test code NEGATIVE NEG = DGLUU) UA BILIRUBIN DIPSTICK (test NEGATIVE NEG code = BILU) UA KETONE DIPSTICK (test code NEGATIVE NEG = KETU) UA SPECIFIC GRAVITY (test code 1.002 1.001-1.035 N = SGU) UA BLOOD DIPSTICK (test code = 2+ NEG A LAWANDA) UA PH DIPSTICK (test code = 7.0 5-9 TONI) UA PROTEIN DIPSTICK (test code NEGATIVE NEG = PROU) UA UROBILINIOGEN DIPSTICK NEGATIVE mg/dL NEG (test code = URO) UA NITRITE DIPSTICK (test code NEG NEG = BECKI) UA LEUKOCYTE ESTERASE DIPSTICK NEG NEG (test code = LEUU) UA WBC (test code = WBCU) 0-2 #/hpf NONE SEEN UA RBC (test code = RBCU) 6-10 #/hpf NONE SEEN A UA EPITHELIAL CELLS (test code RARE #/HPF RARE-FEW = EPIU) Indication for culture: Dysuria/FrequencySpecimen Description: CLEAN CATCHUR HCG [id number] 19:57:00 Test Item Value Reference Range Interpretation Comments UR HCG QUAL (test NEGATIVE 1. Very di lute urine code = HCGQLU) specimens, as indicated by a lowspecific g ravity, may not contain rep resentative levels ofhCG. 2 . False negative result s may occur when the levels of hCGare below the sensi tivity level of the test. If is still suspec elvin, a first morningurine sp ecimen should be colle cted 48 hours later and tested. CBC W/AUTO [id number] 19:54:00 Test Item Value Reference Range Interpretation Comments WHITE BLOOD CELL (test code = WBC) 9.4 K/mm3 6.5-12.3 N RED BLOOD CELL (test code = RBC) 4.10 M/mm3 3.51-4.69 N HEMOGLOBIN (test code = HGB) 12.3 g/dL 10.1-13.8 N HEMATOCRIT (test code = HCT) 37.6 % 32.5-41.8 N MEAN CELL VOLUME (test code = MCV) 91.7 fL 84.6-96.6 N MEAN CELL HGB (test code = MCH) 30.0 pg 27.3-33.9 N MEAN CELL HGB CONCETRATION (test 32.7 gm/dL 32.0-34.2 N code = MCHC) RED CELL DISTRIBUTION WIDTH (test 12.2 % 12.2-16.3 N code = RDW) PLATELET COUNT (test code = PLT) 257 K/mm3 134-363 N MEAN PLATELET VOLUME (test code = 10.5 fL 9.2-12.7 N MPV) NEUTROPHIL % (test code = NT%) 67.4 % 57.9-77.3 N LYMPHOCYTE % (test code = LY%) 25.1 % 14.5-29.7 N MONOCYTE % (test code = MO%) 5.6 % 3.6-10.2 N EOSINOPHIL % (test code = EO%) 1.1 % 0.0-3.0 N BASOPHIL % (test code = BA%) 0.5 % 0.1-0.9 N NEUTROPHIL # (test code = NT#) 6.4 K/mm3 LYMPHOCYTE # (test code = LY#) 2.4 K/mm3 MONOCYTE # (test code = MO#) 0.5 K/mm3 EOSINOPHIL # (test code = EO#) 0.10 K/mm3 BASOPHIL # (test code = BA#) 0.1 K/mm3 RBC MORPHOLOGY REQUIRED (test code NORMAL NORMAL = RBCM) PLATELET MORPHOLOGY REQUIRED (test NORMAL NORMAL code = PLTMR) - DUP AB/PEL/SC/[id number] [facility]:00[facility] 1990 Sex: F Patient Name: RENA ANDREWS Unit No: [id number] EXAMS: CPT CODE: [id number] DUP AB/PEL/SC/LTD 03478 PROCEDURE INFORMATION: Exam: US Pelvis Complete (Transabdominal), Pelvis (Transvaginal), and US Duplex Artery or Vein (Ovaries) Limited Exam date and time: 12/02/2021 7:43 PM Age: 31 years old Clinical indication: Pelvic pain; Prior surgery TECHNIQUE: Imaging protocol: Real-time transabdominal and transvaginal pelvic ultrasound (complete) with image documentation. Transvaginal imaging was used for better evaluation of the endometrium, adnexa, and/or cervix. Real-time duplex ultrasound scanof the arterial or venous flow of the ovaries with B-mode, color Doppler flow and spectral waveform analysis. Complete Pelvis, Limited Duplex. COMPARISON: OT US PELVIS COMPLETE 10/17/2021 9:09 AM Findings: Transabdominal: The uterus measures 8.5 x 3.9 x 4.5 cm containing T shaped echogenic structure within consistent with intrauterine device. Endometrial stripe measures approximately 0.8 cm thickness. The right ovary measures 6.1 x 4.8 x 6 cm containing a 5.1 x 4.1 x 5.2 cm complex cystic lesion with low level internal echoes as well as septations within. Expected low resistance arterial waveforms are documented to the ovary. Left ovary is obscured by overlying gas. Transvaginal: The uterus measures7.5 x 3.6 x 5 cm with endometrial stripe thickness of 0.4 cm. Partially visualized linear echogenic structure within the uterus consistent with intrauterine device. The right ovary measures 6.3 x 3.8 x5.3 cm containing complex cyst with septations and low level internal echoes measuring 4.7 x 5.8 x 3.4 cm. Arterial and venous waveforms are documented to the ovary. Left ovary is obscured by overlyinggas. No adnexal mass visualized. No free pelvic fluid. Impression: 1. Findings consistent with rightovarian hemorrhagic cyst. No evidence for ovarian torsion. 2. Intrauterine device seen appearing adequately positioned by ultrasound.. at 2034 Reported and signed by: Shahzad Arroyo MD CC: Whitley Jo MD Technologist: Hailey Campbell RDMS Probe: Trnscrbd D/ (2034) GCD.CPS Orig Print D/T: S: 12/02/2021 (2034) [facility] NAME: DARRYLRENA HIGINIO Radiology Department PHYS: Geraldine Guevara [address] : 1990 AGE: 31 SEX: F [place], [place] [address] LOC: JUAN PHONE #: [phone] EXAM DATE: 12/02/2021 STATUS: REG ER FAX #: [phone] RAD NO: Page 1 Signed Report Patient Name: RENA ANDREWS Unit No: [id number] EXAMS: CPT CODE: [id number] DUPAB/PEL/SC/LTD 13613 <Continued> [facility] NAME: RENA ANDREWS Radiology Department PHYS: Avery Guevara [address] : 1990 AGE: 31 SEX: F [place], [place] [address] LOC: JUAN PHONE #: [phone] EXAM DATE: 12/02/2021 STATUS: REG ER FAX #: [phone] RAD NO: Page 2 Signed Report- US TRANSVAGINAL [id number] 00:00:00 [facility] 1990 Sex: F Patient Name: RENA ANDREWS Unit No: [id number] EXAMS: CPT CODE: [id number] US TRANSVAGINAL W/PELVIS 41694 PROCEDURE INFORMATION: Exam: US Pelvis Complete (Transabdominal), Pelvis (Transvaginal), and US Duplex Artery or Vein (Ovaries) Limited Exam date and time: 12/02/2021 7:43 PM Age: 31 years old Clinical indication: Pelvic pain; Prior surgery TECHNIQUE: Imaging protocol: Real-time transabdominal and transvaginal pelvic ultrasound (complete) with image documentation. Transvaginal imaging was used for better evaluation of the endometrium, adnexa, and/or cervix. Real-time duplex ultrasound scan of the arterial or venous flow of the ovaries with B-mode, color Doppler flow and spectral waveform analysis. Complete Pelvis, Limited Duplex. COMPARISON: OT US PELVIS COMPLETE 10/17/2021 9:09 AMFindings: Transabdominal: The uterus measures 8.5 x 3.9 x 4.5 cm containing T shaped echogenic structure within consistent with intrauterine device. Endometrial stripe measures approximately 0.8 cm [facility]. The right ovary measures 6.1 x 4.8 x 6 cm containing a 5.1 x 4.1 x 5.2 cm complex cystic lesion with low level internal echoes as well as septations within. Expected low resistance arterial waveforms are documented to the ovary. Left ovary is obscured by overlying gas. Transvaginal: The uterus measures 7.5 x 3.6 x 5 cm with endometrial stripe thickness of 0.4 cm. Partially visualized linear echogenic structure within the uterus consistent with intrauterine device. The right ovary measures 6.3 x 3.8 x 5.3 cm containing complex cyst with septations and low level internal echoes measuring 4.7 x 5.8 x 3.4 cm. Arterial and venous waveforms are documented to the ovary. Left ovary is obscured by overlying gas. No adnexal mass visualized. No free pelvic fluid. Impression: 1. Findings consistent with right ovarian hemorrhagic cyst. No evidence for ovarian torsion. 2. Intrauterine device seen appearing adequately positioned by ultrasound.. at 2034 Reported and signed by: Shahzad Arroyo MD CC: Whitley Jo MD Technologist: Hailye Campbell RDMS Probe: [id number] Trnscrbd D/ (2034) GCD.CPS Orig Print D/T: S: 12/02/2021 (2034) [facility] NAME: DARRYLRENA FRANCIS Radiology Department PHYS: Avery Webb [address] : 1990 AGE: 31 SEX: F [place], [place] [address] LOC: AllanERS PHONE #: [phone] EXAM DATE: 12/02/2021 STATUS: REG ER FAX #: [phone] RAD NO: Page 1 Signed Report Patient Name: RENA ANDREWS Unit No: [id number] EXAMS: CPT CODE: [id number] US TRANSVAGINAL W/PELVIS 62685 <Continued> [facility] NAME:RENA ANDREWS Radiology Department PHYS: Avery Guevara [address] : 1990 AGE: 31 SEX: F [place], [place] [address] LOC: JUAN PHONE #: [phone] EXAM DATE: 12/02/2021 STATUS: REG ER FAX #: [phone] RAD NO: Page 2 Signed Report- US PELVIS [id number] 00:00:00 [facility] : 1990 Sex: F Patient Name: RENA ANDREWS Unit No: [id number] EXAMS: CPT CODE: [id number] US PELVIS COMPLETE 94671 PROCEDURE INFORMATION: Exam: US Pelvis Complete (Transabdominal), Pelvis (Transvaginal), and US Duplex Artery or Vein (Ovaries) Limited Exam date and time: 12/02/2021 7:43 PM Age: 31 years old Clinical indication: Pelvic pain; Prior surgery TECHNIQUE: Imaging protocol: Real-time transabdominal and transvaginal pelvic ultrasound (complete) with image documentation. Transvaginal imaging wasused for better evaluation of the endometrium, adnexa, and/or cervix. Real-time duplex ultrasound scan of the arterial or venous flow of the ovaries with B-mode, color Doppler flow and spectral waveform analysis. Complete Pelvis, Limited Duplex. COMPARISON: OT US PELVIS COMPLETE 10/17/2021 9:09 AM Findings: Transabdominal: The uterus measures 8.5 x 3.9 x 4.5 cm containing T shaped echogenic structure within consistent with intrauterine device. Endometrial stripe measures approximately 0.8 cm thickness. The right ovary measures 6.1 x 4.8 x 6 cm containing a 5.1 x 4.1 x 5.2 cm complex cystic lesion with low level internal echoes as well as septations within. Expected low resistance arterial waveforms are documented to the ovary. Left ovary is obscured by overlying gas. Transvaginal: The uterus measures 7.5 x 3.6 x 5 cm with endometrial stripe thickness of 0.4 cm. Partially visualized linear echogenic structure within the uterus consistent with intrauterine device. The right ovary measures 6.3 x 3.8x 5.3 cm containing complex cyst with septations and low level internal echoes measuring 4.7 x 5.8 x3.4 cm. Arterial and venous waveforms are documented to the ovary. Left ovary is obscured by overlying gas. No adnexal mass visualized. No free pelvic fluid. Impression: 1. Findings consistent with right ovarian hemorrhagic cyst. No evidence for ovarian torsion. 2. Intrauterine device seen appearing adequately positioned by ultrasound.. at 2034 Reported and signed by: Shahzad Arroyo MD CC: Whitley Jo MD Technologist: Hailey Campbell RDMS Probe: Trnscrbd D/ (2034) GCD.CPS Orig Print D/T: S: 12/02/2021 (2034) [facility] NAME: DARRYLRENA FRANCISBETH Radiology Department PHYS: Avery Guevara [address] : 1990 AGE: 31 SEX: F [place], [place] [address] LOC:JUAN PHONE #: [phone] EXAM DATE: 12/02/2021 STATUS: REG ER FAX #: [phone] RAD NO: Page 1 Signed Report Patient Name: RENA ANDREWS Unit No: [id number] EXAMS: CPT CODE: [id number] US PELVIS COMPLETE 88148 <Continued> [facility] NAME: RENA ANDREWSBETH Radiology Department PHYS: Kayden Grisel Avery Wood [address] : 1990 AGE: 31 SEX: F [place], [place] [address] LOC: JUAN PHONE #: [phone] EXAM DATE: 12/02/2021 STATUS: REG ER FAX #: [phone] RAD NO: Page 2 Signed ReportBASIC METABOLIC [id number] 10:27:00 Test Item Value Reference Range Interpretation Comments SODIUM (test code = NA) 137 mEq/L 135-145 N POTASSIUM (test code = K) 3.8 mEq/L 3.5-5.0 N CHLORIDE (test code = CL) 101 mEq/L 100-115 N CARBON DIOXIDE (test code = CO2) 28 mEq/L 22-31 N ANION GAP (test code = GAP) 12.20 10-20 N GLUCOSE (test code = GLU) 86 mg/dL 65-110 N BLOOD UREA NITROGEN (test code = 10 mg/dL 7-18 N BUN) GLOMERULAR FILTRATION RATE (test 74 ml/min >60 N code = GFR) CREATININE (test code = CREAT) 0.9 mg/dL 0.5-1.0 N CALCIUM (test code = CA) 8.6 mg/dL 8.4-10.2 N HCG [id number] 10:27:00 Test Item Value Reference Range Interpretation Comments HCG SERUM (test <1 INTERPRETATI ON:VALUES BETWEEN code = HCG) 15-20 milliInte rnational units/mL NEED T O BERETESTED WITHIN 48 HOURS . All units for these ranges ar e in milliInternatio nalunits/mL0-1 WK AFTER CONCEP TION 0-50 1-2 WKS AFTER ELKIN PTION 40-3002-3 WKS AFTER ELKIN PTION 100-1,0003-4 WK S AFTER CONCEPTION 500- 6,0001-2 MONTHS AFTER CONCEPTIO N 5,000-200,0002- 3 MONTHS AFTER CONCEPTION 10,0 00-100,0002ND TRIMESTER 3,000 -50,0003RD TRIMESTER 1,000 -50,000 SPECIMENS WITH AN HCG LEVEL FROM 0-6 milliInternatio nalunits/mL SHOULD BE CONSI DERED NEGATIVE UA RFLX MICR CULT IF [id number] 09:12:00 Test Item Value Reference Range Interpretation Comments UA COLOR (test code = COLU) YELLOW YELLOW UA APPEARANCE (test code = CLEAR CLEAR APPU) UA GLUCOSE DIPSTICK (test code NEGATIVE NEG = DGLUU) UA BILIRUBIN DIPSTICK (test NEGATIVE NEG code = BILU) UA KETONE DIPSTICK (test code NEGATIVE NEG = KETU) UA SPECIFIC GRAVITY (test code 1.019 1.001-1.035 N = SGU) UA BLOOD DIPSTICK (test code = NEG NEG LAWANDA) UA PH DIPSTICK (test code = 7.0 5-9 TONI) UA PROTEIN DIPSTICK (test code NEGATIVE NEG = PROU) UA UROBILINIOGEN DIPSTICK NEGATIVE mg/dL NEG (test code = URO) UA NITRITE DIPSTICK (test code NEG NEG = BECKI) UA LEUKOCYTE ESTERASE DIPSTICK NEG NEG (test code = LEUU) UA WBC (test code = WBCU) 0-2 #/hpf NONE SEEN UA RBC (test code = RBCU) 0-2 #/hpf NONE SEEN UA EPITHELIAL CELLS (test code RARE #/HPF RARE-FEW = EPIU) UA MUCUS (test code = MUCU) RARE NONE SEEN Indication for culture: Suprapubic PainSpecimen Description: CLEAN CATCHCBC W/AUTO [id number] 09:11:00 Test Item Value Reference Range Interpretation Comments WHITE BLOOD CELL (test code = WBC) 7.8 K/mm3 6.5-12.3 N RED BLOOD CELL (test code = RBC) 4.21 M/mm3 3.51-4.69 N HEMOGLOBIN (test code = HGB) 12.6 g/dL 10.1-13.8 N HEMATOCRIT (test code = HCT) 38.5 % 32.5-41.8 N MEAN CELL VOLUME (test code = MCV) 91.4 fL 84.6-96.6 N MEAN CELL HGB (test code = MCH) 29.9 pg 27.3-33.9 N MEAN CELL HGB CONCETRATION (test 32.7 gm/dL 32.0-34.2 N code = MCHC) RED CELL DISTRIBUTION WIDTH (test 11.9 % 12.2-16.3 L code = RDW) PLATELET COUNT (test code = PLT) 235 K/mm3 134-363 N MEAN PLATELET VOLUME (test code = 10.3 fL 9.2-12.7 N MPV) NEUTROPHIL % (test code = NT%) 60.9 % 57.9-77.3 N LYMPHOCYTE % (test code = LY%) 29.6 % 14.5-29.7 N MONOCYTE % (test code = MO%) 6.7 % 3.6-10.2 N EOSINOPHIL % (test code = EO%) 1.5 % 0.0-3.0 N BASOPHIL % (test code = BA%) 1.0 % 0.1-0.9 H NEUTROPHIL # (test code = NT#) 4.7 K/mm3 LYMPHOCYTE # (test code = LY#) 2.3 K/mm3 MONOCYTE # (test code = MO#) 0.5 K/mm3 EOSINOPHIL # (test code = EO#) 0.12 K/mm3 BASOPHIL # (test code = BA#) 0.1 K/mm3 RBC MORPHOLOGY REQUIRED (test code NORMAL NORMAL = RBCM) PLATELET MORPHOLOGY REQUIRED (test NORMAL NORMAL code = PLTMR) - CT ABD PELVIS [id number] [facility]:00[facility] 1990 Sex: F Patient Name: RENA ANDREWS Unit No: [id number] EXAMS: CPT CODE: [id number] CT ABD PELVIS W/CONT 68568 Radiation Dose CTDIVOL = 4.69 (mGy): DLP = 251.94 (mGy-cm) PROCEDURE INFORMATION: Exam: CT Abdomen And Pelvis With Contrast Exam date and time: 10/17/2021 11:16 AM Age: 31 years old Clinical indication: Nausea and vomiting and other: Rlq pain; Prior surgery; Surgery date: 6+ months; Surgery type: 2013, 2017; Additional info: Rlq pain, n/v TECHNIQUE: Imaging protocol: Computed tomography of the abdomen and pelvis with contrast. Radiation optimization: All CT scans at this facility use at least one of these dose optimization techniques: automated exposure control; mA and/or kV adjustment per patient size (includes targeted exams where dose is matched to clinical indication); oriterative reconstruction. Contrast material: ISOVUE 300; Contrast volume: 100 ml; Contrast route: INTRAVENOUS (IV); Other contrast: Catheter, Isovue 300, 100; COMPARISON: US DUP AB/PEL/SC LTD 10/17/2021 9:09 AM RADIATION DOSE METRICS: CTDI volume (mGy): 4.69 Total DLP (mGy-cm): 251.94 FINDINGS: Lungs: Mild dependent atelectasis in the lung bases. Liver: Multiple hypodensities in the right lobe of the liver. The largest measures 2.3 cm and appears to demonstrate some peripheral enhancement. Smooth liver contour. Gallbladder and bile ducts: No calcified stones, wall thickening or pericholecystic fluid. No ductal dilation. Pancreas: Normal. No ductal dilation. Spleen: Normal. No splenomegaly. Adrenal glands: Normal. No mass. Kidneys and ureters: Normal. No stones or hydronephrosis. Stomach and bowel: Moderate stool throughout the colon and rectum. No abnormal small bowel distention. No bowel wall thickening. [facility] NAME: DARRYLRENA SYLVESTER Radiology Department PHYS: Velma Whitman MD [address] : 1990 AGE: 31 SEX: F [place], [place] [address] LOC: JUAN PHONE #: [phone] EXAM DATE: 10/17/2021 STATUS: REG ER FAX #: [phone] RAD NO: Page 1 Signed Report 1 Patient Name: RENA ANDREWS Unit No: [id number] EXAMS: CPT CODE: [id number] CT ABD PELVIS W/CONT 47044 <Continued> Appendix: Normal appendix. Intraperitoneal space: No free fluid or air. Vasculature: No abdominal aortic aneurysm. Lymph nodes: No lymphadenopathy. Urinary bladder: Normal for degree of distention. Reproductive: Normal CT appearance of the uterus. Intrauterine device appears appropriately positioned on long the endometrial canal. Normal CT appearance of the ovaries. Bones/joints: No acute abnormalities. Soft tissues: Small fat-containing umbi lical hernia. Right gluteal calcified granuloma. IMPRESSION: 1. Moderate stool. Otherwise, no acute abnormalities in the abdomen or pelvis. 2. Multiple hypodense lesions within the right liver measure up to 2.3 cm. This can be further evaluated with abdominal MRI on a nonemergent basis. at 1210 Reported and signed by: Adan Becerril MD CC: Whitley Jo MD; Velma Jensen MD Technologist: ASIA RESTREPO RT(R) CTDI: 4.69 DLP: 251.94 Trnscrbd D/ (1210) GCD.CPS [facility] NAME: RENA ANDREWS Radiology Department PHYS: Velma Whitman MD [address] : 1990 AGE: 31SEX: F [place] [address] LOC: AllanERS PHONE #: [phone] EXAM DATE: 10/17/2021 STATUS: REG ER FAX #: [phone] RAD NO: Page 2 Signed Report 1 Patient Name: RENA ANDREWS Unit No: [id number] EXAMS: CPT CODE: [id number] CT ABD PELVIS W/CONT 80409 <Continued> Orig Print D/T: S: 10/17/2021 (1210) [facility] NAME: RENA [facility] Radiology Department PHYS: Velma Whitman MD [address] : 1990 AGE: 31 SEX: F [place], [place] [address] LOC: AllanERS PHONE #: [phone] EXAM DATE: 10/17/2021 STATUS: REG ER FAX #: [phone] RAD NO: Page 3 Signed Report 1- US [id number] 00:00:00 [facility] : 1990 Sex: F Patient Name: RENA ANDREWS Unit No: [id number] EXAMS: CPT CODE: [id number] US TRANSVAGINAL 69941 PROCEDURE INFORMATION: Exam: US Pelvis Complete (Transabdominal), Pelvis (Transvaginal), and US Duplex Artery or Vein (Ovaries) Limited Exam date and time: 10/17/2021 9:09 AM Age: 31 years old Clinical indication: Pelvic pain; Prior surgery; Surgery date: <1 month; Surgery type: Mirena placement, and c-sections TECHNIQUE: Imaging protocol: Real-time transabdominal and transvaginal pelvic ultrasound (complete) with image documentation. Transvaginal imaging was used for better evaluation ofthe endometrium, adnexa, and/or cervix. Real-time duplex ultrasound scan of the arterial or venous flow of the ovaries with B-mode, color Doppler flow and spectral waveform analysis. Complete Pelvis, Limited Duplex. COMPARISON: No relevant prior studies available. FINDINGS: Uterus: The uterus is anteverted, measuring 8.4 x 3.1 x 5.2 cm. The endometrium is uniform, measuring 3 mm. An IUD is seen in the upper endometrial cavity. A Caesarean section scar is seen in the anterior lower uterine segment. Cervix: Nabothian cysts are noted in the uterine cervix. Right ovary/adnexa: Normal duplex of the ovary, which measures 3.2 x 2.0 x 2.0 cm. Normal Doppler waveforms and color flow. Left ovary/adnexa: Normal duplex of the ovary, which measures 3.6 x 2.8 x 2.2 cm. Normal Doppler waveforms and color flow. Intraperitoneal space: No intraperitoneal fluid. Urinary bladder: Visualized bladder is unremarkable.IMPRESSION: 1. Unremarkable pelvic sonogram. 2. Appropriately positioned IUD at 1021 Reported and signed by: Cain Nunes MD CC: Whitley Jo MD; Velma Jensen MD Technologist: KELSI DIAZ RDMS Probe: [id number] TrnscrbdD/ (1021) GCD.CPS Orig Print D/T: S: 10/17/2021 (1021) [facility] NAME: DARRYLRENA SANABRIABETH Radiology Department PHYS: Velma Whitman MD [address] : AGE: 31 SEX: F [place] [address] LOC: AllanERS PHONE #: [phone] DATE: 10/17/2021 STATUS: REG ER FAX #: [phone] RAD NO: Page 1 Signed Report Patient Name:RENA ANDREWS Unit No: [id number] EXAMS: CPT CODE: [id number] TRANSVAGINAL 85239 <Continued> [facility] NAME: RENA ANDREWSBETH Radiology Department PHYS: Velma Whitman MD [address] : 1990 AGE: 31 SEX: F [place], [place] [address] LOC: AllanERS PHONE #: [phone] EXAM DATE: 10/17/2021 STATUS: REG ER FAX #: [phone] RAD NO: Page 2 Signed Report- DUP AB/PEL/SC/[id number] 00:00:00 [facility] : 1990 Sex: F Patient Name: RENA ANDREWS Unit No: [id number] EXAMS: CPT CODE: [id number] DUP AB/PEL/SC/LTD 95203 PROCEDURE INFORMATION: Exam: US Pelvis Complete (Transabdominal), Pelvis (Transvaginal), and US Duplex Artery or Vein (Ovaries) Limited Exam date and time: 10/17/2021 9:09 AM Age: 31 years oldClinical indication: Pelvic pain; Prior surgery; Surgery date: <1 month; Surgery type: Mirena placement, and c-sections TECHNIQUE: Imaging protocol: Real-time transabdominal and transvaginal pelvic ultrasound (complete) with image documentation. Transvaginal imaging was used for better evaluation of the endometrium, adnexa, and/or cervix. Real-time duplex ultrasound scan of the arterial or venous flow of the ovaries with B-mode, color Doppler flow and spectral waveform analysis. Complete Pelvis, Limited Duplex. COMPARISON: No relevant prior studies available. FINDINGS: Uterus: The uterus is anteverted, measuring 8.4 x 3.1 x 5.2 cm. The endometrium is uniform, measuring 3 mm. An IUD is seen in the upper endometrial cavity. A Caesarean section scar is seen in the anterior lower uterine segment. Cervix: Nabothian cysts are noted in the uterine cervix. Right ovary/adnexa: Normal duplex of the ovary, which measures 3.2 x 2.0 x 2.0 cm. Normal Doppler waveforms and color flow. Left ovary/adnexa: Normal duplex of the ovary, which measures 3.6 x 2.8 x 2.2 cm. Normal Doppler waveforms and color flow.Intraperitoneal space: No intraperitoneal fluid. Urinary bladder: Visualized bladder is unremarkable. IMPRESSION: 1. Unremarkable pelvic sonogram. 2. Appropriately positioned IUD at 1021 Reported and signed by: Cain Nunes MD CC: Prashanth Jo MD; Velma Jensen MD Technologist: KELSI DIAZ RDMS Probe: Trnscrbd D/ (1021) GCD.CPS Orig Print D/T: S: 10/17/2021 (1021) [facility] NAME: RENA ANDREWS Radiology Department PHYS: Velma Whitman MD [address] : 1990AGE: 31 SEX: [place] [address] LOC: Carleen.ERS PHONE #: [phone] EXAM DATE: 10/17/2021 STATUS: REG ER FAX #: [phone] RAD NO: Page 1 Signed Report Patient Name: DARRYLRENA SYLVESTER Unit No: [id number] EXAMS: CPT CODE: [id number] DUP AB/PEL/SC/LTD 56517 <Continued> [facility] NAME: RENA ANDREWS Radiology Department PHYS: Velma Whitman MD [address] : 1990 AGE: 31 SEX: [place], [place] [address] LOC: Carleen.ERS PHONE #: [phone] EXAM DATE: 10/17/2021 STATUS: REG ER FAX #: [phone] RAD NO: Page 2 Signed Report- US PELVIS [id number] 00:00:00 [facility] : 1990 Sex: F Patient Name: RENA ANDREWS Unit No: [id number] EXAMS: CPT CODE: [id number] US PELVIS COMPLETE 21262 PROCEDURE INFORMATION: Exam: US Pelvis Complete (Transabdominal), Pelvis (Transvaginal), and US Duplex Artery or Vein (Ovaries) Limited Exam date and time: 10/17/2021 9:09 AM Age: 31 years old Clinical indication: Pelvic pain; Prior surgery; Surgery date: <1 month; Surgery type: Mirena placement, and c- sections TECHNIQUE: Imaging protocol: Real-time transabdominal and transvaginal pelvic ultrasound (complete) with image documentation. Transvaginal imaging was used for better evaluation of the endometrium, adnexa, and/or cervix. Real-time duplex ultrasound scan of the arterial or venous flow of the ovaries with B- mode, color Doppler flow and spectral waveform analysis. Complete Pelvis, Limited Duplex. COMPARISON: No relevant prior studies available. FINDINGS: Uterus: The uterus is anteverted, measuring 8.4 x 3.1 x 5.2 cm. The endometrium is uniform, measuring 3 mm. An IUD is seen in the upper endometrial cavity. A Caesarean section scar is seen in the anterior lower uterine segment. Cervix: Nabothian cysts are noted in the uterine cervix. Right ovary/adnexa: Normal duplex of the ovary, which measures 3.2 x 2.0 x 2.0 cm. Normal Doppler waveforms and color flow. Left ovary/adnexa:Normal duplex of the ovary, which measures 3.6 x 2.8 x 2.2 cm. Normal Doppler waveforms and color flow. Intraperitoneal space: No intraperitoneal fluid. Urinary bladder: Visualized bladder is unremarkable. IMPRESSION: 1. Unremarkable pelvic sonogram. 2. Appropriately positioned IUD at 1021 Reported and signed by: Cain Nunes MD CC: Whitley Jo MD; Velma Jensen MD Technologist: KELSI DIAZ RDMS Probe: Trnscrbd D/ (1021) GCD.CPS Orig Print D/T: S: 10/17/2021 (1021) [facility] NAME: RENA ANDREWS Radiology Department PHYS: Velma Whitman MD [address] : 1990 AGE: 31 SEX: F [place], [place] [address] LOC: [facility] PHONE #: [phone] EXAM DATE: 10/17/2021 STATUS: REG ER FAX #: [phone] RAD NO: Page 1 Signed Report Patient Name: RENA ANDREWS Unit No: [id number] EXAMS: CPT CODE: [id number] US PELVIS COMPLETE 20807 <Continued> [facility] NAME: RENA ANDREWS Radiology Department PHYS: Velma Juan MD [address] : 1990 AGE: 31 SEX: F [place], [place] [address] LOC: [facility]ERS PHONE #: [phone] EXAM DATE: 10/17/2021 STATUS: REG ER FAX #: [phone] RAD NO: Page 2 Signed Report- DUP VEIN UNI [id number] 22:53:00 [facility] : 1990 Sex: FPatient Name: RENA ANDREWS Unit No: [id number] EXAMS: CPT CODE: [id number] [place] [address] Location: H3 Doppler Venous Sonogram of left lower extremity conducted on 05/31/21. Doppler color spectral and color waveform analysis was conducted CLINICAL HISTORY: Left location of the FINDINGS: Do not seeany findings definite findings for acute DVT. Assessment of the calf vessels is somewhat limited dueto technical factors.. Normal compressibility, phasic variation and augmentation is identified from the left popliteal vein more superiorly. Do not see a popliteal cyst . IMPRESSION: No definite DVT with limited assessment of the calf vessels Electronically Signed by Nakita Weeks MD on 05/31/2021 at 2253 Reported and signed by: Nakita Weeks MD CC: Kelby Cota Jr, MD;Carolyn Maharaj Technologist: Madina Hameed Probe: Trscr Dt/Tm: 05/31/2021 (2252) by:[email or web address] Electronic Signature Date/Time: 05/31/2021 (2252)Orig Print D/T: S: 05/31/2021 (2255) Name: RENA ANDREWS [facility] [place] Phys: Carolyn Brewster [address] : 1990 Age: 31 Sex: [place] [address] Loc: [place].ERS Exam Date: 05/31/2021 Status: REGER PH: FAX: PAGE 1 Signed Report SARS-CoV2/RT-PCR (Asymptomatic ONLY)2021-04-25 19:13:19 Test Item Value Reference Interpretation Comments Range SARS-COV2/RT-PCR Positive Negative AA The SARS-Co V-2 (test code = target nucleic 47613-7) acids are detec elvin in this specime n. The presence SARS-CoV-2 nucl eic acids cannot ru le out co-infectio ns or disease caus ed by other viral or bacterial pathogens. As w ith any molecular t est, mutations withi n the target jessica ons of the Xpert Xp ress SARS-CoV-2 test could affect pr rob and/or probe binding resulti ng in failure to detect the pres ence of virus or the virus being detected less predictably. Fa lse negative result s may occur if vi jeannine is present at levels below th e analytical limi t of detection. This SARS CoV-2 test is a rapid, real-t ksenia RT-PCR test intended for th e qualitative detection of nucleic acid fr om SARS-CoV-2 in a nasopharyngeal swab specimen collec elvin from individual s suspected of COVID-19 by the ir healthcare provider. Resul ts from the Xpert Xpress SARS-CoV -2 test should be correlated with the clinical histor y, epidemiological data, and other data available to the clinician evaluating the patient. Viral nucleic acid ma y persist in vivo , independent of virus viability . Detection of analyte target( s) does not imply that the correspondi ng virus(es) are infectious or a re the causative agents for clin ical symptoms. DERRICK (test code = This test has been DERRICK) authorized by FDA under an EUA for use by authorized laboratories. This test is only authorized for the duration of the declaration that circumstances exist justifying the authorization of emergency use of in vitro diagnostic tests for detection and/or diagnosis of COVID-19 under Section 564(b)(1) of the Federal Food, Drug and Cosmetic Act, 21 U.S.C. 360bbb-3(b)(1), unless the authorization is terminated or revoked sooner. Fact Sheet for Healthcare Providers: https://www.ATEME/Documents/Xp ert%20Xpress%20SAR S%20CoV-2/Fact%20S heets/302-3802%20S ARS-COV-2%20HEALTH CARE%20PROVIDERS%2 0FACT%20SHEET.pdf Fact Sheet for Healthcare Patients: https://www.ATEME/Documents/Xp ert%20Xpress%20SAR S%20CoV-2/Fact%20S heets/302-3801%20S ARS-COV-2%20PATIEN T%20FACT%20SHEET.p df Lab Interpretation Abnormal (test code = 62255-3) [facility]2021-04-25 19:13:19 Test Item Value Reference Interpretation Comments Range SARS-COV2/RT-PCR Positive Negative AA The SARS-Co V-2 (test code = target nucleic 66257-6) acids are detec elvin in this specime n. The presence SARS-CoV-2 nucl eic acids cannot ru le out co-infectio ns or disease caus ed by other viral or bacterial pathogens. As w ith any molecular t est, mutations withi n the target jessica ons of the Xpert Xp ress SARS-CoV-2 test could affect pr rob and/or probe binding resulti ng in failure to detect the pres ence of virus or the virus being detected less predictably. Fa lse negative result s may occur if vi jeannine is present at levels below th e analytical limi t of detection. This SARS CoV-2 test is a rapid, real-t ksenia RT-PCR test intended for th e qualitative detection of nucleic acid fr om SARS-CoV-2 in a nasopharyngeal swab specimen collec elvin from individual s suspected of COVID-19 by the ir healthcare provider. Resul ts from the Xpert Xpress SARS-CoV -2 test should be correlated with the clinical histor y, epidemiological data, and other data available to the clinician evaluating the patient. Viral nucleic acid ma y persist in vivo , independent of virus viability . Detection of analyte target( s) does not imply that the correspondi ng virus(es) are infectious or a re the causative agents for clin ical symptoms. DERRICK (test code = This test has been DERRICK) authorized by FDA under an EUA for use by authorized laboratories. This test is only authorized for the duration of the declaration that circumstances exist justifying the authorization of emergency use of in vitro diagnostic tests for detection and/or diagnosis of COVID-19 under Section 564(b)(1) of the Federal Food, Drug and Cosmetic Act, 21 U.S.C. 360bbb-3(b)(1), unless the authorization is terminated or revoked sooner. Fact Sheet for Healthcare Providers: https://www.ATEME/Documents/Xp ert%20Xpress%20SAR S%20CoV-2/Fact%20S heets/302-1898%20S ARS-COV-2%20HEALTH CARE%20PROVIDERS%2 0FACT%20SHEET.pdf Fact Sheet for Healthcare Patients: https://www.ATEME/Documents/Xp ert%20Xpress%20SAR S%20CoV-2/Fact%20S heets/302-3654%20S ARS-COV-2%20PATIEN T%20FACT%20SHEET.p df Lab Interpretation Abnormal (test code = 88497-1) [facility])2021-04-25 19:13:19 Test Item Value Reference Range Interpretation Comments SARS-COV2/RT-PCR Positive Negative AA The SARS-Co V-2 target (test code = nucleic acids a re detected ) in this specime n. The presence SARS-C oV-2 nucleic acids cannot ru le out co-infections o r disease caused by other viral or bacterial patho gens. As with any molecular t est, mutations withi n the target regions of the Xpert Xpress SARS-CoV-2 test could affect primer and/or p robe binding resulting in fa ilure to detect the pres ence of virus or the virus be ing detected less predictabl y. False negative result s may occur if virus is pre sent at levels below th e analytical limit of detect ion. This SARS CoV-2 test is a rapid, real-time RT-PC R test intended for th e qualitative detection of nu cleic acid from SARS-CoV-2 in a nasopharyngeal swab specimen collected from individuals suspected of CO VID-19 by their healthcar e provider. Results from th e Xpert Xpress SARS-CoV -2 test should be corre lated with the clinical hi story, epidemiological data, and other data avai lable to the clinician evalu ating the patient. Viral nucleic acid may persist in vivo, independent of virus viability. Dete ction of analyte target( s) does not imply that the corresponding virus(es) are i nfectious or are the causati ve agents for clinical sympto ms. This test has been authorized by FDA under an EUA for use by authorized laboratories. This test is only authorized for the duration of the declaration that circumstances exist justifying the authorization of emergency use of in vitro diagnostic tests for detection and/or diagnosis of COVID-19 under Section 564(b)(1) of the Federal Food, Drug and Cosmetic Act, 21 U.S.C. 360bbb-3(b)(1), unless the authorization is terminated or revoked sooner. Fact Sheet for Healthcare Providers: https://www.cepheid.co m/Documents/Xpert%20Xpress%20SARS%20CoV-2/Fact%20Sheets/302-3802%46ZAAP-MUW-5%20 HEALTHCARE%20PROVIDERS%20FACT%20SHEET.pdf Fact Sheet for Healthcare Patients: https://www.Helijia/Documents/Xpert%20Xp ress%20SARS%20CoV-2/Fact%20Sheets/302-3801%66NYGX-CLS-8%20PATIENT%20FACT%20SHEET .pdfSalicylate [id number] 18:56:59 Test Item Value Reference Range Interpretation Comments Salicylate Lvl (test code <5.0 20.0-30.0 L = 4024-6) DERRICK (test code = DERRICK) Raised Printer ID - LEANN Lab Interpretation (test Abnormal code = 13176-7) [facility] [id number] 18:56:59 Test Item Value Reference Range Interpretation Comments Salicylate Lvl (test code <5.0 20.0-30.0 L = 4024-6) DERRICK (test code = DERRICK) Raised Printer ID - LEANN Lab Interpretation (test Abnormal code = 92266-4) [facility] FarmALICYLATE [id number] 18:56:59 Test Item Value Reference Range Interpretation Comments SALICYLATE LEVEL (BEAKER) (test code < mg/dL 20.0-30.0 L = 764) Raised Printer ID - BRUCEAcetaminophen [id number] 18:56:48 Test Item Value Reference Range Interpretation Comments Acetaminophen Level (test <5.7 10.0-30.0 L code = 3298-7) DERRICK (test code = DERRICK) Raised Printer ID - LEANN Lab Interpretation (test Abnormal code = 65168-2) [facility], [id number] 18:56:48 Test Item Value Reference Range Interpretation Comments Barbiturate Screen Negative Negative (test code = 71611-8) Benzodiazepine Screen Negative Negative (test code = 78916-9) Cocaine (Metab.) Negative Negative Screen (test code = 3397-7) Opiate Screen (test Negative Negative code = 26935-5) Cannabinoid Screen Negative Negative (test code = 40990-5) Amph/Methamph Screen Negative Negative (test code = 02541-8) Phencyclidine Screen Negative Negative (test code = 95876-4) pH, UA (test code = 6.5 5.0-8.0 5803-2) DERRICK (test code = DERRICK) DRUG CUTOFF CONC.Cocaine 300 ng/mLCannabinoid 50 ng/mLBenzodiazepine 200 ng/mLBarbiturate 200 ng/mLPhencyclidine 25 ng/mLOpiate 300 ng/mLAmphetamine/ 1000 ng/mL Methamphetamine This assay provides an unconfirmed qualitative test result for the clinical management of patients in emergency situations. Chain of custody not maintained. Some pfnm-tdv-hozhepa medications, as well as adulterants, may cause inaccurate results. Clinical correlation should be applied. A more comprehensive drug screen or confirmation of a detected drug may be performed upon request.Raised Printer ID - LEANN Lab Interpretation Normal (test code = 26060-2) [facility] CenterAcetaminophen [id number] 18:56:48 Test Item Value Reference Range Interpretation Comments Acetaminophen Level (test <5.7 10.0-30.0 L code = 3298-7) DERRICK (test code = DERRICK) Raised Printer ID - LEANN Lab Interpretation (test Abnormal code = 86074-1) [facility], [id number] 18:56:48 Test Item Value Reference Range Interpretation Comments Barbiturate Screen Negative Negative (test code = 90733-4) Benzodiazepine Screen Negative Negative (test code = 03897-5) Cocaine (Metab.) Negative Negative Screen (test code = 3397-7) Opiate Screen (test Negative Negative code = 15057-3) Cannabinoid Screen Negative Negative (test code = 27615-9) Amph/Methamph Screen Negative Negative (test code = 54290-9) Phencyclidine Screen Negative Negative (test code = 58240-8) pH, UA (test code = 6.5 5.0-8.0 5803-2) DERRICK (test code = DERRICK) DRUG CUTOFF CONC.Cocaine 300 ng/mLCannabinoid 50 ng/mLBenzodiazepine 200 ng/mLBarbiturate 200 ng/mLPhencyclidine 25 ng/mLOpiate 300 ng/mLAmphetamine/ 1000 ng/mL Methamphetamine This assay provides an unconfirmed qualitative test result for the clinical management of patients in emergency situations. Chain of custody not maintained. Some mqxz-inm-prcojgi medications, as well as adulterants, may cause inaccurate results. Clinical correlation should be applied. A more comprehensive drug screen or confirmation of a detected drug may be performed upon request.Raised Printer ID - LEANN Lab Interpretation Normal (test code = 02496-0) [facility], [id number] 18:56:48 Test Item Value Reference Range Interpretation Comments BARBITURATE URINE (BEAKER) (test Negative Negative code = 725) BENZODIAZEPINE SCREEN URINE (BEAKER) Negative Negative (test code = 726) COCAINE (METAB.) SCREEN (BEAKER) Negative Negative (test code = 1164) OPIATE SCREEN URINE (BEAKER) (test Negative Negative code = 734) CANNABINOID SCREEN URINE (BEAKER) Negative Negative (test code = 727) AMPH/METHAMPH SCREEN (BEAKER) (test Negative Negative code = 1438) PHENCYCLIDINE SCREEN URINE (BEAKER) Negative Negative (test code = 608) PH UA (BEAKER) (test code = 467) 6.5 5.0-8.0 DRUG CUTOFF CONC.Cocaine 300 ng/mLCannabinoid 50 ng/mLBenzodiazepine 200 ng/mLBarbiturate 200 ng/mLPhencyclidine 25 ng/mLOpiate 300 ng/mLAmphetamine/ 1000 ng/mL MethamphetamineThis assay provides an unconfirmed qualitative test result for the clinical management of patients in emergency situations. Chain of custody not maintained. Some nedr-kxl-hrytwzg medications, as well as adulterants, may cause inaccurate results. Clinical correlation should be applied. A more comprehensive drug screen or confirmation of a detected drug may be performed upon request.Raised Printer ID - LEANNACETAMINOPHEN [id number] 18:56:48 Test Item Value Reference Range Interpretation Comments ACETAMINOPHEN LEVEL (BEAKER) (test < ug/mL 10.0-30.0 L code = 344) Raised Printer ID - LEANNBasic Metabolic [id number] 18:54:44 Test Item Value Reference Range Interpretation Comments Sodium (test code = 139 meq/L 438-692 2306-2) Potassium (test code = 3.5 meq/L 3.6-5.5 L 2823-3) Chloride (test code = 102 meq/L 98-106 2075-0) CO2 (test code = 23 meq/L 20-29 8-9) BUN (test code = 9 mg/dL 10-26 L 3094-0) Creatinine (test code 0.78 mg/dL 0.50-1.20 = 2160-0) Glucose (test code = 96 mg/dL 70-110 2345-7) Calcium (test code = 9.9 mg/dL 8.5-10.5 79643-2) EGFR (test code = 88 mL/min/1.73 [place] [address]-0) NOT ACCURATE CREATININE CLEARANCE IN PREDICTING GLOMERULAR FILTRATION RATE . ESTIMATED GFR I S NOT APPLICABLE FOR DIALYSIS PATIENTS. DERRICK (test code = DERRICK) Raised Printer ID - LEANN Lab Interpretation Abnormal (test code = 68430-4) [facility] Metabolic [id number] 18:54:44 Test Item Value Reference Range Interpretation Comments Sodium (test code = 139 meq/L 233-250 3643-2) Potassium (test code = 3.5 meq/L 3.6-5.5 L 2823-3) Chloride (test code = 102 meq/L 98-106 2075-0) CO2 (test code = 23 meq/L 20-29 2028-9) BUN (test code = 9 mg/dL 10-26 L 3094-0) Creatinine (test code 0.78 mg/dL 0.50-1.20 = 2160-0) Glucose (test code = 96 mg/dL 70-110 2345-7) Calcium (test code = 9.9 mg/dL 8.5-10.5 20375-5) EGFR (test code = 88 mL/min/1.[place] [address]-3) NOT ACCURATE CREATININE CLEARANCE IN PREDICTING GLOMERULAR FILTRATION RATE . ESTIMATED GFR I S NOT APPLICABLE FOR DIALYSIS PATIENTS. DERRICK (test code = DERRICK) Raised Printer ID - LEANN Lab Interpretation Abnormal (test code = 72954-5) [facility] METABOLIC [id number] 18:54:44 Test Item Value Reference Range Interpretation Comments SODIUM (BEAKER) 139 meq/L 135-148 (test code = 381) POTASSIUM (BEAKER) 3.5 meq/L 3.6-5.5 L (test code = 379) CHLORIDE (BEAKER) 102 meq/L 98-106 (test code = 382) CO2 (BEAKER) (test 23 meq/L 20-29 code = 355) BLOOD UREA NITROGEN 9 mg/dL 10-26 L (BEAKER) (test code = 354) CREATININE (BEAKER) 0.78 mg/dL 0.50-1.20 (test code = 358) GLUCOSE RANDOM 96 mg/dL 70-110 (BEAKER) (test code = 652) CALCIUM (BEAKER) 9.9 mg/dL 8.5-10.5 (test code = 697) EGFR (BEAKER) (test 88 mL/min/1.73 ESTIMA ELVIN GFR IS code = 1092) sq m NOT ACCURATE CREATININE CLEARANCE IN PREDICTING GLOMERULAR FILTRATION RATE . ESTIMATED GFR I S NOT APPLICABLE FOR DIALYSIS PATIEN TS. Raised Printer ID - [id number] 18:54:43 Test Item Value Reference Range Interpretation Comments Ethanol Lvl (test <10 See_Comment [Automate d code = 5643-2) message] The system which generated this result transmit elvin reference range : <=10 mg/dL. The reference range was not used to interpret this result as normal/abnormal . DERRICK (test code = DERRICK) Raised Printer ID - LEANN Lab Interpretation Normal (test code = 87004-3) [facility] CenterEthanol2022-01-07 18:54:43 Test Item Value Reference Range Interpretation Comments Ethanol Lvl (test <10 See_Comment [Automate d code = 5643-2) message] The system which generated this result transmit elvin reference range : <=10 mg/dL. The reference range was not used to interpret this result as normal/abnormal . DERRICK (test code = DERRICK) Raised Printer ID - LEANN Lab Interpretation Normal (test code = 01071-4) [facility]43 Test Item Value Reference Range Interpretation Comments ETHANOL (BEAKER) < mg/dL See_Comment [Automated message] The (test code = 400) system [facility] generated this result tra nsmitted reference range : <=10. The reference r fatimah was not used to int erpret this result as normal/abnormal . Raised Printer ID - LEANNhCG, serum, [id number] 18:37:57 Test Item Value Reference Range Interpretation Comments Preg Test, Serum Negative \\[id number] x2023/09/16\\ (test code = 2110-5) [facility], serum, [id number] 18:37:57 Test Item Value Reference Range Interpretation Comments Preg Test, Serum Negative \\[id number] x2\\ (test code = 2110-5) [facility], SERUM, [id number] 18:37:57 Test Item Value Reference Range Interpretation Comments TEST SERUM Negative \\[id number]/05/31 (BEAKER) (test code = \\ 584) CBC with platelet count + automated [id number] 18:24:53 Test Item Value Reference Range Interpretation Comments WBC (test code = 6690-2) 10.8 See_Comment H [A utomated message] The system [employer] generated this result transmitted ref erence range: 4.0 - 10 .0 K/L. The refe rence range was not u sed to interpret this result as normal/abnor mal. RBC (test code = 789-8) 4.29 See_Comment [Au tomated message] The system [employer] generated this result transmitted ref erence range: 4.00 - 5 .00 M/L. The refe rence range was not u sed to interpret this result as normal/abnor mal. MCHC (test code = 786-4) 32.7 See_Comment [A utomated message] The system [employer] generated this result transmitted ref erence range: 32.0 - 3 6.0 GM/DL. The refe rence range was not u sed to interpret this result as normal/abnor mal. Hematocrit (test code = 40.1 % 36.0-46.0 4544-3) MCV (test code = 787-2) 93.5 fL 82.0-99.0 MCH (test code = 785-6) 30.5 pg 27.0-33.0 RDW (test code = 788-0) 11.9 % 12.0-15.0 L Platelets (test code = 255 See_Comment [Aut omated message] 777-3) The system [employer] generated this result transmitted ref erence range: 150 - 43 0 K/CU MM. The referen ce range was not u sed to interpret this result as normal/abnor mal. MPV (test code = 10.4 fL 6.0-11.5 49308-6) nRBC (test code = 413) 0 See_Comment [Aut omated message] The system [employer] generated this result transmitted ref erence range: 0 - 0 /1 00 WBC. The refere nce range was not u sed to interpret this result as normal/abnor mal. % Neutros (test code = 67 % 429) % Lymphs (test code = 27 % 430) % Monos (test code = 5 % 431) % Eos (test code = 432) 1 % % Baso (test code = 437) 1 % # Neutros (test code = 7.23 See_Comment [Aut omated message] 670) The system [employer] generated this result transmitted ref erence range: 1.80 - 8 .00 K/L. The refe rence range was not u sed to interpret this result as normal/abnor mal. # Lymphs (test code = 2.90 See_Comment [Auto mated message] 414) The system [employer] generated this result transmitted ref erence range: 1.48 - 4 .50 K/L. The refe rence range was not u sed to interpret this result as normal/abnor mal. # Monos (test code = 0.50 See_Comment [Autom ated message] 415) The system [employer] generated this result transmitted ref erence range: 0.00 - 1 .30 K/L. The refe rence range was not u sed to interpret this result as normal/abnor mal. # Eos (test code = 416) 0.07 See_Comment [Au tomated message] The system [employer] generated this result transmitted ref erence range: 0.00 - 0 .50 K/L. The refe rence range was not u sed to interpret this result as normal/abnor mal. # Baso (test code = 417) 0.05 See_Comment [A utomated message] The system [employer] generated this result transmitted ref erence range: 0.00 - 0 .20 K/L. The refe rence range was not u sed to interpret this result as normal/abnor mal. Immature 0 % 0-0 Granulocytes-Relative (test code = 2801) Lab Interpretation (test Abnormal code = 49468-3) [facility] + automated [id number] 18:24:53 Test Item Value Reference Range Interpretation Comments WBC (test code = 6690-2) 10.8 See_Comment H [A utomated message] The system [employer] generated this result transmitted ref erence range: 4.0 - 10 .0 K/L. The refe rence range was not u sed to interpret this result as normal/abnor mal. RBC (test code = 789-8) 4.29 See_Comment [Au tomated message] The system [employer] generated this result transmitted ref erence range: 4.00 - 5 .00 M/L. The refe rence range was not u sed to interpret this result as normal/abnor mal. MCHC (test code = 786-4) 32.7 See_Comment [A utomated message] The system [employer] generated this result transmitted ref erence range: 32.0 - 3 6.0 GM/DL. The refe rence range was not u sed to interpret this result as normal/abnor mal. Hematocrit (test code = 40.1 % 36.0-46.0 4544-3) MCV (test code = 787-2) 93.5 fL 82.0-99.0 MCH (test code = 785-6) 30.5 pg 27.0-33.0 RDW (test code = 788-0) 11.9 % 12.0-15.0 L Platelets (test code = 255 See_Comment [Aut omated message] 777-3) The system [employer] generated this result transmitted ref erence range: 150 - 43 0 K/CU MM. The referen ce range was not u sed to interpret this result as normal/abnor mal. MPV (test code = 10.4 fL 6.0-11.5 07009-3) nRBC (test code = 413) 0 See_Comment [Aut omated message] The system [employer] generated this result transmitted ref erence range: 0 - 0 /1 00 WBC. The refere nce range was not u sed to interpret this result as normal/abnor mal. % Neutros (test code = 67 % 429) % Lymphs (test code = 27 % 430) % Monos (test code = 5 % 431) % Eos (test code = 432) 1 % % Baso (test code = 437) 1 % # Neutros (test code = 7.23 See_Comment [Aut omated message] 670) The system [employer] generated this result transmitted ref erence range: 1.80 - 8 .00 K/L. The refe rence range was not u sed to interpret this result as normal/abnor mal. # Lymphs (test code = 2.90 See_Comment [Auto mated message] 414) The system [employer] generated this result transmitted ref erence range: 1.48 - 4 .50 K/L. The refe rence range was not u sed to interpret this result as normal/abnor mal. # Monos (test code = 0.50 See_Comment [Autom ated message] 415) The system [employer] generated this result transmitted ref erence range: 0.00 - 1 .30 K/L. The refe rence range was not u sed to interpret this result as normal/abnor mal. # Eos (test code = 416) 0.07 See_Comment [Au tomated message] The system [employer] generated this result transmitted ref erence range: 0.00 - 0 .50 K/L. The refe rence range was not u sed to interpret this result as normal/abnor mal. # Baso (test code = 417) 0.05 See_Comment [A utomated message] The system [employer] generated this result transmitted ref erence range: 0.00 - 0 .20 K/L. The refe rence range was not u sed to interpret this result as normal/abnor mal. Immature 0 % 0-0 Granulocytes-Relative (test code = 2801) Lab Interpretation (test Abnormal code = 32254-2) [facility] W/PLT COUNT & AUTO [id number] 18:24:53 Test Item Value Reference Range Interpretation Comments WHITE BLOOD CELL COUNT (BEAKER) 10.8 K/ L 4.0-10.0 H (test code = 775) RED BLOOD CELL COUNT (BEAKER) 4.29 M/ L 4.00-5.00 (test code = 761) HEMOGLOBIN (BEAKER) (test code = 13.1 GM/DL 12.0-15.5 410) HEMATOCRIT (BEAKER) (test code = 40.1 % 36.0-46.0 411) MEAN CORPUSCULAR VOLUME (BEAKER) 93.5 fL 82.0-99.0 (test code = 753) MEAN CORPUSCULAR HEMOGLOBIN 30.5 pg 27.0-33.0 (BEAKER) (test code = 751) MEAN CORPUSCULAR HEMOGLOBIN CONC 32.7 GM/DL 32.0-36.0 (BEAKER) (test code = 752) RED CELL DISTRIBUTION WIDTH 11.9 % 12.0-15.0 L (BEAKER) (test code = 412) PLATELET COUNT (BEAKER) (test 255 K/CU MM 150-430 code = 756) MEAN PLATELET VOLUME (BEAKER) 10.4 fL 6.0-11.5 (test code = 754) NUCLEATED RED BLOOD CELLS 0 /100 WBC 0-0 (BEAKER) (test code = 413) NEUTROPHILS RELATIVE PERCENT 67 % (BEAKER) (test code = 429) LYMPHOCYTES RELATIVE PERCENT 27 % (BEAKER) (test code = 430) MONOCYTES RELATIVE PERCENT 5 % (BEAKER) (test code = 431) EOSINOPHILS RELATIVE PERCENT 1 % (BEAKER) (test code = 432) BASOPHILS RELATIVE PERCENT 1 % (BEAKER) (test code = 437) NEUTROPHILS ABSOLUTE COUNT 7.23 K/ L 1.80-8.00 (BEAKER) (test code = 670) LYMPHOCYTES ABSOLUTE COUNT 2.90 K/ L 1.48-4.50 (BEAKER) (test code = 414) MONOCYTES ABSOLUTE COUNT (BEAKER) 0.50 K/ L 0.00-1.30 (test code = 415) EOSINOPHILS ABSOLUTE COUNT 0.07 K/ L 0.00-0.50 (BEAKER) (test code = 416) BASOPHILS ABSOLUTE COUNT (BEAKER) 0.05 K/ L 0.00-0.20 (test code = 417) IMMATURE GRANULOCYTES-RELATIVE 0 % 0-0 PERCENT (BEAKER) (test code = 2801) XR CHEST 1 VIEW PORTABLE *OW*2021-04-10 19:29:21 [facility] CENTERName: RENA ANDREWS : 1990 Sex: F[address]Indication: Chest pain.Comparison: NoneFindings:The heart and mediastinum are not remarkable.Costophrenic angles are clear.Lungs are clear.Bone is unremarkable for age.Impression:1. No radiographic evidence of acute cardiopulmonary disease.Electronically signed by: Malik Marques MD 04/10/2021 7:29 PM [facility] -[facility] (RAPID ANTIGEN) WH 2021-04-10 19:13:00 Test Item Value Reference Range Interpretation Comments SARS-CoV (ANTIGEN) NEGATIVE NEGATIVE (test code = COVAG) COVID AG (test This test has been code = COVAGC) marketed under the FDA Emergency Use Authorization (EUA) to meet challenges of the COVID-19 pandemic. The validation standards normally enforced by the FDA and the [employer] ([employer]) are more stringent than those required for this test. Therefore, the result should be interpreted with caution and close attention to other clinical and epidemiological data TROPONIN I OW2021-04-10 19:13:00 Test Item Value Reference Range Interpretation Comments TROPONIN I (test <0.05 ng/mL See_Comment [Automated message] code = GTPI) The system [employer] generated this result transmitted ref erence range: <=0.05. The reference range was not used to int erpret this result as normal/abnormal . MetyLyte 8 Panel *OW* [id number] 19:08:00 Test Item Value Reference Range Interpretation Comments GLUCOSE (test code = GGUL) 102 mg/dL 73-118 BUN (test code = GBUN) 12 mg/dL 7-22 CREATININE (test code = GCRE) 0.8 mg/dL 0.6-1.2 CK TOTAL (test code = GCK) 96 U/L 30-190 SODIUM (test code = GNA+) 140 mmol/L 128-145 POTASSIUM (test code = GK+) 3.3 mmol/L 3.6-5.1 L CHLORIDE (test code = GCL-) 107 mmol/L 98-108 TCO2 (test code = GTC02) 26 mmol/L 18-33 INFLUENZA A AND B OW2021-04-10 19:08:00 Test Item Value Reference Range Interpretation Comments INFLUENZ A (test code = INFA) NEGATIVE NEGATIVE INFLUENZ B (test code = INFB) NEGATIVE NEGATIVE CBC (INCLUDES AUTOMATED DIFFERENTIAL) *2021-04-10 18:57:00 Test Item Value Reference Range Interpretation Comments WBC (test code = WBC) 5.0 10\\S\\3/uL 4.5-11.0 RBC (test code = RBC) 3.98 10\\S\\6/uL 4.30-5.70 L HGB (test code = HBG) 12.1 g/dL 12.0-15.5 HCT (test code = HCT) 37.3 % 35.0-44.0 MCV (test code = MCV) 93.7 fL 81.0-99.0 MCH (test code = MCH) 30.4 pg 27.0-31.0 MCHC (test code = MCHC) 32.4 g/dL 32.0-36.0 RDW (test code = RDW) 11.8 % 11.5-14.5 PLT (test code = PLT) 235 10\\S\\3/uL 130-400 MPV (test code = OMPV) 8.1 fL 6.2-10.2 NEUTROP # (test code = NE#) 3.9 10\\S\\3/uL 1.6-8.0 LYMPH # (test code = LY#) 0.7 10\\S\\3/uL 1.1-3.5 L MID # (test code = GMID#) 0.4 10\\S\\3/uL 0.0-1.1 GRAN % (test code = GRA%) 78.8 % 35.0-73.0 H LYMPH % (test code = GLY%) 13.4 % 20.0-55.0 L MID % (test code = GMID%) 7.8 % 0.0-10.0 ECG 12 [id number] 21:00:50 Test Item Value Reference Range Interpretation Comments Ventricular rate (test code = 253) Atrial rate (test code = 255) VT interval (test code = 266) QRSD interval (test code = 260) QT interval (test code = 264) QTC interval (test code = 265) P axis 1 (test code = 267) QRS axis 1 (test code = 268) T wave axis (test code = 270) EKG impression (test Normal sinus code = 273) rhythm-Nonspecific ST abnormality-Abnormal ECG-No previous ECGs available-Electronica lly Signed By Francisco Nunes MD (2024) on 10/31/2020 4:00:49 PM [facility] 12 [id number] 21:00:50 Test Item Value Reference Range Interpretation Comments Ventricular rate (test code = 253) Atrial rate (test code = 255) VT interval (test code = 266) QRSD interval (test code = 260) QT interval (test code = 264) QTC interval (test code = 265) P axis 1 (test code = 267) QRS axis 1 (test code = 268) T wave axis (test code = 270) EKG impression (test Normal sinus code = 273) rhythm-Nonspecific ST abnormality-Abnormal ECG-No previous ECGs available-Electronica lly Signed By Francisco Nunes MD (2024) on 10/31/2020 4:00:49 PM GENERAL CHEMISTRY 13 *OW* [id number] 11:47:00 Test Item Value Reference Range Interpretation Comments GLUCOSE (test code = GGUL) 109 mg/dL 73-118 BUN (test code = GBUN) 15 mg/dL 7-22 CREATININE (test code = GCRE) 1.1 mg/dL 0.6-1.2 URIC ACID (test code = GUA) 4.6 mg/dL 2.2-6.6 CALCIUM (test code = GCL+) 9.1 mg/dL 8.0-10.3 ALBUMIN (test code = GALB) 3.7 g/dL 3.5-5.5 PROTEIN (test code = GTP) 6.4 g/dL 6.4-8.1 ALT (test code = GALT) 14 U/L 10-47 AST (test code = GOGO) 21 U/L 11-38 ALK PHOS (test code = GALP) 45 U/L 42-141 BILI TOTAL (test code = GTBIL) 0.6 mg/dL 0.2-1.6 GGT (test code = GGGT) 7 U/L 5-65 AMYLASE (test code = GAMY) 51 U/L 14-97 MetyLyte 8 Panel *OW* [id number] 11:32:00 Test Item Value Reference Range Interpretation Comments GLUCOSE (test code = GGUL) 111 mg/dL 73-118 BUN (test code = GBUN) 14 mg/dL 7-22 CREATININE (test code = GCRE) 0.8 mg/dL 0.6-1.2 CK TOTAL (test code = GCK) 62 U/L 30-190 SODIUM (test code = GNA+) 142 mmol/L 128-145 POTASSIUM (test code = GK+) 3.7 mmol/L 3.6-5.1 CHLORIDE (test code = GCL-) 107 mmol/L 98-108 TCO2 (test code = GTC02) 28 mmol/L 18-33 URINALYSIS W/O MICROSCOPICOW2019-12-15 11:32:00 Test Item Value Reference Range Interpretation Comments COLOR (test code = Yellow YELLOW COLU) CLARITY (test code = Clear CLEAR CLA) GLUCOSE UR (test Negative NEGATIVE code = UA GLUCOSE) BILI UR (test code = Negative NEGATIVE BILE) KETONES UR (test Negative NEGATIVE code = ZEB) SP GRAVITY (test 1.020 1.005-1.030 code = SPGR) PH UR (test code = 6.0 4.5-8.0 PH) PROTEIN UR (test Negative NEGATIVE code = PU) NITRITE UR (test Negative NEGATIVE code = NITRITE) UROBIL UR (test code 0.2 E.U./dL = GUROQ) UROBIL UR (test code UROBILINOGEN = GUROQC) REFERENCE RANGE 0.2 - 1.0 EU/dL BLOOD UR (test code Trace-lysed NEGATIVE = UA BLOOD) LEUK ES UR (test Trace NEGATIVE code = LEUK) URINE OW2019-12-15 11:32:00 Test Item Value Reference Range Interpretation Comments PREG UR (test code = PGU) Negative NEGATIVE CBC (INCLUDES AUTOMATED DIFFERENTIAL) *2019-12-15 11:21:00 Test Item Value Reference Range Interpretation Comments WBC (test code = WBC) 7.0 10\\S\\3/uL 4.5-11.0 RBC (test code = RBC) 3.83 10\\S\\6/uL 4.30-5.70 L HGB (test code = HBG) 11.7 g/dL 12.0-15.5 L HCT (test code = HCT) 36.7 % 35.0-44.0 MCV (test code = MCV) 95.8 fL 81.0-99.0 MCH (test code = MCH) 30.5 pg 27.0-31.0 MCHC (test code = MCHC) 31.9 g/dL 32.0-36.0 L RDW (test code = RDW) 12.2 % 11.5-14.5 PLT (test code = PLT) 179 10\\S\\3/uL 130-400 MPV (test code = OMPV) 8.7 fL 6.2-10.2 NEUTROP # (test code = NE#) 5.1 10\\S\\3/uL 1.6-8.0 LYMPH # (test code = LY#) 1.4 10\\S\\3/uL 1.1-3.5 MID # (test code = GMID#) 0.5 10\\S\\3/uL 0.0-1.1 GRA % (test code = GRA%) 72.3 % 35.0-73.0 LYMPH % (test code = GLY%) 20.6 % 20.0-55.0 MID % (test code = GMID%) 7.1 % 0.0-10.0 URINE OW2019-11-27 12:19:00 Test Item Value Reference Range Interpretation Comments PREG UR (test code = PGU) Negative NEGATIVE URINALYSIS W/O MICROSCOPICOW2019-11-27 12:13:00 Test Item Value Reference Range Interpretation Comments COLOR (test code = Yellow YELLOW COLU) CLARITY (test code = Clear CLEAR CLA) GLUCOSE UR (test Negative NEGATIVE code = UA GLUCOSE) BILI UR (test code = Negative NEGATIVE BILE) KETONES UR (test Trace NEGATIVE code = ZEB) SP GRAVITY (test 1.025 1.005-1.030 code = SPGR) PH UR (test code = 6.0 4.5-8.0 PH) PROTEIN UR (test Negative NEGATIVE code = PU) NITRITE UR (test Negative NEGATIVE code = NITRITE) UROBIL UR (test code 0.2 E.U./dL = GUROQ) UROBIL UR (test code UROBILINOGEN = GUROQC) REFERENCE RANGE 0.2 - 1.0 EU/dL BLOOD UR (test code Trace-lysed NEGATIVE = UA BLOOD) LEUK ES UR (test 1+ NEGATIVE A code = LEUK) GENERAL CHEMISTRY 13 *OW* [id number] 12:00:00 Test Item Value Reference Range Interpretation Comments GLUCOSE (test code = GGUL) 85 mg/dL 73-118 BUN (test code = GBUN) 13 mg/dL 7-22 CREATININE (test code = GCRE) 1.1 mg/dL 0.6-1.2 URIC ACID (test code = GUA) 3.1 mg/dL 2.2-6.6 CALCIUM (test code = GCL+) 9.6 mg/dL 8.0-10.3 ALBUMIN (test code = GALB) 4.5 g/dL 3.5-5.5 PROTEIN (test code = GTP) 7.7 g/dL 6.4-8.1 ALT (test code = GALT) 13 U/L 10-47 AST (test code = GOGO) 24 U/L 11-38 ALK PHOS (test code = GALP) 60 U/L 42-141 BILI TOTAL (test code = GTBIL) 0.9 mg/dL 0.2-1.6 GGT (test code = GGGT) 11 U/L 5-65 AMYLASE (test code = GAMY) 53 U/L 14-97 MetyLyte 8 Panel *OW* [id number] 11:44:00 Test Item Value Reference Range Interpretation Comments GLUCOSE (test code = GGUL) 85 mg/dL 73-118 BUN (test code = GBUN) 13 mg/dL 7-22 CREATININE (test code = GCRE) 0.6 mg/dL 0.6-1.2 CK TOTAL (test code = GCK) 86 U/L 30-190 SODIUM (test code = GNA+) 140 mmol/L 128-145 POTASSIUM (test code = GK+) 4.4 mmol/L 3.6-5.1 CHLORIDE (test code = GCL-) 103 mmol/L 98-108 TCO2 (test code = GTC02) 27 mmol/L 18-33 CBC (INCLUDES AUTOMATED DIFFERENTIAL) *2019-11-27 11:41:00 Test Item Value Reference Range Interpretation Comments WBC (test code = WBC) 6.3 10\\S\\3/uL 4.5-11.0 RBC (test code = RBC) 4.37 10\\S\\6/uL 4.30-5.70 HGB (test code = HBG) 13.3 g/dL 12.0-15.5 HCT (test code = HCT) 41.3 % 35.0-44.0 MCV (test code = MCV) 94.4 fL 81.0-99.0 MCH (test code = MCH) 30.4 pg 27.0-31.0 MCHC (test code = MCHC) 32.2 g/dL 32.0-36.0 RDW (test code = RDW) 13.2 % 11.5-14.5 PLT (test code = PLT) 211 10\\S\\3/uL 130-400 MPV (test code = OMPV) 8.3 fL 6.2-10.2 NEUTROP # (test code = NE#) 3.6 10\\S\\3/uL 1.6-8.0 LYMPH # (test code = LY#) 2.2 10\\S\\3/uL 1.1-3.5 MID # (test code = GMID#) 0.5 10\\S\\3/uL 0.0-1.1 GRA % (test code = GRA%) 57.7 % 35.0-73.0 LYMPH % (test code = GLY%) 34.7 % 20.0-55.0 MID % (test code = GMID%) 7.6 % 0.0-10.0 AMYLASE AND [id number] 19:16:00 Test Item Value Reference Range Interpretation Comments AMYLASE (test code = 10A) 47 U/L 28-100 LIPASE (test code = 60A) 109 IU/L 73-393 LIVER [id number] 19:16:00 Test Item Value Reference Range Interpretation Comments BILI TOTAL (test code = 11A) 0.4 mg/dL 0.2-1.0 BILI DIRCT (test code = 12A) 0.1 mg/dL 0.0-0.2 BILI INDIR (test code = BILII) 0.3 mg/dL <=0.8 PROTEIN (test code = 07D) 7.8 g/dL 6.4-8.2 ALBUMIN (test code = 08D) 4.3 g/dL 3.5-4.8 GLOBULIN (test code = GLB) 3.5 g/dL 1.5-3.8 ALB/GLOB (test code = AGRR) 1.2 1.0-2.6 ALK PHOS (test code = 35A) 71 IU/L 42-121 AST (test code = 30A) 14 IU/L <=42 ALT (test code = 31A) 21 IU/L <=78 CT ABDOMEN AND PELVIS WITH CONTRAST *OW*2018-12-12 18:28:34LOCATION: [id number]: 28-year-old female who presents with right upper quadrant abdominalpain.COMMENT: Axial CT imaging of this patient's abdomen and pelvis was obtained with IVcontrast. A delayed postcontrast study was included. Coronal and sagittal softtissue reconstructions were included. An ultrasound study of the gallbladder obtained earlier today is available forcomparison.One or more of the following dose reduction techniques are used: Automatedexposure control, adjustment of the mA and/or kVaccording the patient size,and/or utilization of iterative reconstruction technique.DLP: 1632.66 mGy-cmCONTRAST: 95 mL of Omnipaque 300 nonionic contrast was injected into the rightantecubital vein. Serum creatinine level was 0.8.FINDINGS:The lung bases are clear. The cardiac silhouette is unremarkable.The liver, spleen, pancreas, adrenal glands, kidneys, and gallbladder exhibitno acute findings. There is a small cavernous hemangioma seen in the righthepatic lobe which largely fills in with contraston the delayed study. Thislesion measures 15 mm in diameter.The upper intestinal tract and the smallintestine are unremarkable. Anormal-appearing appendix is seen. The colon is unremarkable.There is no ascites or adenopathy present.In the pelvis the urinary bladder, uterus, and ovaries are unremarkable.The vascular anatomy is unremarkable.The musculoskeletal anatomy is unremarkable.IMPRESSION:There are no acute findings in this patient's abdomen or pelvis on this CTstudy. A cavernous hemangioma is seen in the liver.URINALYSIS W/O MICROSCOPICOW2018-12-12 17:44:00 Test Item Value Reference Range Interpretation Comments COLOR (test code = Yellow YELLOW COLU) CLARITY (test code = Clear CLEAR CLA) GLUCOSE UR (test Negative NEGATIVE code = UA GLUCOSE) BILI UR (test code = Negative NEGATIVE BILE) KETONES UR (test Trace NEGATIVE code = ZEB) SP GRAVITY (test >=1.030 1.005-1.030 code = SPGR) PH UR (test code = 6.0 4.5-8.0 PH) PROTEIN UR (test Trace NEGATIVE code = PU) NITRITE UR (test Positive NEGATIVE code = NITRITE) UROBIL UR (test code 1.0 E.U./dL = GUROQ) UROBIL UR (test code UROBILINOGEN = GUROQC) REFERENCE RANGE 0.2 - 1.0 EU/dL BLOOD UR (test code Trace-lysed NEGATIVE = UA BLOOD) LEUK ES UR (test Trace NEGATIVE code = LEUK) URINE OW2018-12-12 17:44:00 Test Item Value Reference Range Interpretation Comments PREG UR (test code = PGU) NEGATIVE NEGATIVE CBC (INCLUDES AUTOMATED DIFFERENTIAL) *2018-12-12 17:43:00 Test Item Value Reference Range Interpretation Comments WBC (test code = WBC) 8.7 10\\S\\3/uL 4.5-11.0 RBC (test code = RBC) 4.48 10\\S\\6/uL 4.30-5.70 HGB (test code = HBG) 13.9 g/dL 12.0-15.5 HCT (test code = HCT) 43.3 % 35.0-44.0 MCV (test code = MCV) 96.6 fL 81.0-99.0 MCH (test code = MCH) 31.0 pg 27.0-31.0 MCHC (test code = MCHC) 32.1 g/dL 32.0-36.0 RDW (test code = RDW) 12.8 % 11.5-14.5 PLT (test code = PLT) 257 10\\S\\3/uL 130-400 MPV (test code = OMPV) 9.1 fL 6.2-10.2 NEUTROP # (test code = NE#) 4.8 10\\S\\3/uL 1.6-8.0 LYMPH # (test code = LY#) 3.1 10\\S\\3/uL 1.1-3.5 MID # (test code = GMID#) 0.8 10\\S\\3/uL 0.0-1.1 GRA % (test code = GRA%) 55.2 % 35.0-73.0 LYMPH % (test code = GLY%) 36.0 % 20.0-55.0 MID % (test code = GMID%) 8.8 % 0.0-10.0 CHEM8+ i-STAT OW2018-12-12 17:43:00 Test Item Value Reference Range Interpretation Comments SODIUM (test code = JARVIS) 143 mmol/L 138-146 POTASSIUM (test code = KI) 4.0 mmol/L 3.5-4.9 CHLORIDE (test code = CLI) 106 mmol/L 98-109 CA IONIZED (test code = ICAI) 1.23 mmol/L 1.12-1.32 GLUCOSE (test code = GLUI) 78 mg/dL 75-100 TCO2 (test code = TCO2) 27 mmol/L 24-29 BUN (test code = BUN1) 19 mg/dL 8-26 CREATININE (test code = CREAI) 0.8 mg/dL 0.6-1.3 ANION GAP (test code = GANG) 14.0 mmol/L HGB (test code = MHB) 13.6 g/dL 12.0-17.0 HCT (test code = MHCT) 40.0 % 38.0-51.0 DIRECT CHLAMYDIA [id number] 07:20:00 Test Item Value Reference Range Interpretation Comments CHLAMYDIA NOT DETECTED NOT DETECTED TRACHOMATIS (test code = 76760771) NEISSERIA NOT DETECTED NOT DETECTED GONORRHOEAE (test code = 83759843) Endnote (test code This test was = [id number]) performed using the APTIMA COMBO2 Assay([employer]The jens tical performance characteristics of thisassay, when used to test SurePat h specimens haveb een determined by Direct Access Software.RADHA T PERFORMED AT:[facility] [id number] [place] [id number] SHIN M.D. URINE OW2018-03-23 10:47:00 Test Item Value Reference Range Interpretation Comments PREG UR (test code = PGU) Negative NEGATIVE URINALYSIS W/O MICROSCOPICOW2018-03-23 10:43:00 Test Item Value Reference Range Interpretation Comments COLOR (test code = Yellow YELLOW COLU) CLARITY (test code = Clear CLEAR CLA) GLUCOSE UR (test Negative NEGATIVE code = UA GLUCOSE) BILI UR (test code = Negative NEGATIVE BILE) KETONES UR (test Negative NEGATIVE code = ZEB) SP GRAVITY (test 1.020 1.005-1.030 code = SPGR) PH UR (test code = 8.5 4.5-8.0 H PH) PROTEIN UR (test Trace NEGATIVE code = PU) NITRITE UR (test Negative NEGATIVE code = NITRITE) UROBIL UR (test code 1.0 E.U./dL = GUROQ) UROBIL UR (test code UROBILINOGEN = GUROQC) REFERENCE RANGE 0.2 - 1.0 EU/dL BLOOD UR (test code Negative NEGATIVE = UA BLOOD) LEUK ES UR (test Negative NEGATIVE code = LEUK) U/S GALLBLADDER *OW*2017-12-12 14:18:09Exam: Abdominal sonogram.Location: D0Hgbgcrl: R10.11: RIGHT UPPER QUADRANT PAINTechnique: A real-time transabdominal sonogram of the abdomen was performed.Findings:The gallbladder is empty. No pericholecystic fluid or wall thickening is seen.The liver is of normal, homogeneous echotexture and dqkspluh48.9 cm in depth.The intra-and extrahepatic biliary tree is normal. The common bile ductmeasures 5 mm.The visualized pancreas and right kidney are normal. No nephrolithiasis,perinephric fluid collections or hydronephrosis is seen. The right kidneymeasures 11.0 x 3.9 x 6.2 cm. No free fluid is found inthe abdomen. The visualized aorta and IVC areunremarkable.No incidental abdominal findings.Impression:Unremarkable exam. URINE OW2017-12-12 12:28:00 Test Item Value Reference Range Interpretation Comments PREG UR (test code = PGU) Negative NEGATIVE CHEM8+ i-STAT OW2017-12-12 12:25:00 Test Item Value Reference Range Interpretation Comments SODIUM (test code = JARVIS) 143 mmol/L 138-146 POTASSIUM (test code = KI) 3.5 mmol/L 3.5-4.9 CHLORIDE (test code = CLI) 108 mmol/L 98-109 CA IONIZED (test code = ICAI) 1.12 mmol/L 1.12-1.32 GLUCOSE (test code = GLUI) 98 mg/dL 75-100 TCO2 (test code = TCO2) 24 mmol/L 24-29 BUN (test code = BUN1) 6 mg/dL 8-26 L CREATININE (test code = CREAI) 0.7 mg/dL 0.6-1.3 ANION GAP (test code = GANG) 16.0 mmol/L HGB (test code = MHB) 13.3 g/dL 12.0-17.0 HCT (test code = MHCT) 39.0 % 38.0-51.0 URINALYSIS W/O MICROSCOPICOW2017-12-12 12:25:00 Test Item Value Reference Range Interpretation Comments COLOR (test code = Yellow YELLOW COLU) CLARITY (test code = Clear CLEAR CLA) GLUCOSE UR (test Negative NEGATIVE code = UA GLUCOSE) BILI UR (test code = Negative NEGATIVE BILE) KETONES UR (test Negative NEGATIVE code = ZEB) SP GRAVITY (test 1.025 1.005-1.030 code = SPGR) PH UR (test code = 6.0 4.5-8.0 PH) PROTEIN UR (test Negative NEGATIVE code = PU) NITRITE UR (test Positive NEGATIVE code = NITRITE) UROBIL UR (test code 0.2 E.U./dL = GUROQ) UROBIL UR (test code UROBILINOGEN = GUROQC) REFERENCE RANGE 0.2 - 1.0 EU/dL BLOOD UR (test code Trace-intact NEGATIVE = UA BLOOD) LEUK ES UR (test Trace NEGATIVE code = LEUK) CBC (INCLUDES AUTOMATED DIFFERENTIAL) *2017-12-12 12:23:00 Test Item Value Reference Range Interpretation Comments WBC (test code = WBC) 9.7 10\\S\\3/uL 4.5-11.0 RBC (test code = RBC) 4.51 10\\S\\6/uL 4.30-5.70 HGB (test code = HBG) 12.9 g/dL 12.0-15.5 HCT (test code = HCT) 38.2 % 35.0-44.0 MCV (test code = MCV) 84.8 fL 81.0-99.0 MCH (test code = MCH) 28.6 pg 27.0-31.0 MCHC (test code = MCHC) 33.8 g/dL 32.0-36.0 RDW (test code = RDW) 15.4 % 11.5-14.5 H PLT (test code = PLT) 228 10\\S\\3/uL 130-400 MPV (test code = OMPV) 8.2 fL 6.2-10.2 NEUTROP # (test code = NE#) 6.3 10\\S\\3/uL 1.6-8.0 LYMPH # (test code = LY#) 2.6 10\\S\\3/uL 1.1-3.5 MID # (test code = GMID#) 0.7 10\\S\\3/uL 0.0-1.1 GRA % (test code = GRA%) 65.2 % 35.0-73.0 LYMPH % (test code = GLY%) 27.2 % 20.0-55.0 MID % (test code = GMID%) 7.6 % 0.0-10.0 CHEM [id number] 20:16:00 Test Item Value Reference Range Interpretation Comments eGFR (test code = eGFR) [address] [facility] [address] [id number] 20:16:00 Test Item Value Reference Range Interpretation Comments Bili Total (test code = Bili Total) 0.2 0.2-1.[address] [facility] [id number] 20:16:00 Test Item Value Reference Range Interpretation Comments AGAP (test code = AGAP) 11.2 10.0-20.[address] [facility] [id number] 20:16:00 Test Item Value Reference Range Interpretation Comments A/G Ratio (test code = A/G Ratio) 1.1 0.7-1.[address] [facility] [id number] 20:16:00 Test Item Value Reference Range Interpretation Comments Alk Phos (test code = Alk Phos) 81 39-136 [facility]2015-04-25 20:16:00 Test Item Value Reference Range Interpretation Comments AST (test code = AST) 10 See_Comment [Auto mated message] The system which ge nerated this result transmit elvin reference range : <=37. The reference range was not used to interpr et this result as holger l/abnormal. [facility]2015-04-25 20:16:00 Test Item Value Reference Range Interpretation Comments B/C Ratio (test code = B/C Ratio) 14 - [facility]2015-04-25 20:16:00 Test Item Value Reference Range Interpretation Comments Globulin (test code = Globulin) 3.6 2.0-4.0 [facility]2015-04-25 20:16:00 Test Item Value Reference Range Interpretation Comments Glucose Lvl (test code = Glucose Lvl) 96 70-99 [facility]2015-04-25 20:16:00 Test Item Value Reference Range Interpretation Comments Creatinine Lvl (test code = Creatinine 0.7 0.5-1.4 Lvl) [facility]2015-04-25 20:16:00 Test Item Value Reference Range Interpretation Comments BUN (test code = BUN) 10 7-22 [facility]2015-04-25 20:16:00 Test Item Value Reference Range Interpretation Comments Sodium Lvl (test code = Sodium Lvl) 140 135-145 [facility]2015-04-25 20:16:00 Test Item Value Reference Range Interpretation Comments Chloride Lvl (test code = Chloride Lvl) 106 95-109 [facility]2015-04-25 20:16:00 Test Item Value Reference Range Interpretation Comments Potassium Lvl (test code = Potassium 4.2 3.5-5.1 Lvl) [facility]2015-04-25 20:16:00 Test Item Value Reference Range Interpretation Comments CO2 (test code = CO2) 27 24-32 [facility]2015-04-25 20:16:00 Test Item Value Reference Range Interpretation Comments Albumin Lvl (test code = Albumin Lvl) 3.9 3.5-5.0 [facility]2015-04-25 20:16:00 Test Item Value Reference Range Interpretation Comments Total Protein (test code = Total 7.5 6.4-8.4 Protein) [facility]2015-04-25 20:16:00 Test Item Value Reference Range Interpretation Comments Calcium Lvl (test code = Calcium Lvl) 8.9 8.5-10.5 [facility]2015-04-25 20:16:00 Test Item Value Reference Range Interpretation Comments ALT (test code = ALT) 21 See_Comment [Auto mated message] The system which ge nerated this result transmit elvin reference range : <=65. The reference range was not used to interpr et this result as holger l/abnormal. [place] [id number] 20:16:00 Test Item Value Reference Range Interpretation Comments S Preg (test code = S Negative *NA*(08/11/14 Preg) 3:16 PM) [id number] 20:16:00 Test Item Value Reference Range Interpretation Comments Basophils # (test code 0.0 See_Comment [Aut omated message] The = Basophils #) system which generated this result tra nsmitted reference range : <=0.2. The reference r fatimah was not used to int erpret this result as normal/abnormal . [facility] Gr[id number] 20:16:00 Test Item Value Reference Range Interpretation Comments Eosinophils # (test code 0.1 See_Comment [A utomated message] The = Eosinophils #) system whic h generated this result tra nsmitted reference range : <=0.5. The reference r fatimah was not used to int erpret this result as normal/abnormal . [id number] 20:16:00 Test Item Value Reference Range Interpretation Comments Lymphocytes (test code = Lymphocytes) 29.6 20.0-40.0 [facility] Gr[id number] 20:16:00 Test Item Value Reference Range Interpretation Comments Basophils (test code = 0.4 See_Comment [Aut omated message] The Basophils) system which ge nerated this result tra nsmitted reference range : <=1.0. The reference r fatimah was not used to int erpret this result as normal/abnormal . [facility] Gr[id number] 20:16:00 Test Item Value Reference Range Interpretation Comments Eosinophils (test code = 0.5 See_Comment [A utomated message] The Eosinophils) system which ge nerated this result tra nsmitted reference range : <=4.0. The reference r fatimah was not used to int erpret this result as normal/abnormal . [facility] Gr[id number] 20:16:00 Test Item Value Reference Range Interpretation Comments Monocytes (test code = Monocytes) 5.9 2.0-12.0 [facility] Gra[id number] 20:16:00 Test Item Value Reference Range Interpretation Comments Segs (test code = Segs) 63.6 45.0-75.0 [facility] Gr[id number] 20:16:00 Test Item Value Reference Range Interpretation Comments Segs-Bands # (test code = Segs-Bands #) 6.0 1.5-8.1 [facility] GrapevineIorragoZPEUSRDZQH1201-73-68 20:16:00 Test Item Value Reference Range Interpretation Comments Lymphocytes # (test code = Lymphocytes 2.8 1.0-5.5 #) [facility]r[id number] 20:16:00 Test Item Value Reference Range Interpretation Comments Monocytes # (test code 0.6 See_Comment [Aut omated message] The = Monocytes #) system which generated this result tra nsmitted reference range : <=0.8. The reference r fatimah was not used to int erpret this result as normal/abnormal . [facility]rapevineEhtnzpsBWMPQDLMFR1515-79-11 20:16:00 Test Item Value Reference Range Interpretation Comments RDW (test code = RDW) 12.6 11.5-14.5 [facility]r[id number] 20:16:00 Test Item Value Reference Range Interpretation Comments MCHC (test code = MCHC) 32.6 32.0-36.0 [facility] Grape[id number] 20:16:00 Test Item Value Reference Range Interpretation Comments MCH (test code = MCH) 28.6 pg 27.0-31.0 [facility] GrapevineHwmhnnsJVXXSXFJFT6504-41-03 20:16:00 Test Item Value Reference Range Interpretation Comments MCV (test code = MCV) 87.6 80.0-98.0 [facility] GrapevineUgsibtwERYUBWPVIF7445-01-77 20:16:00 Test Item Value Reference Range Interpretation Comments Hct (test code = Hct) 38.2 36.0-48.0 [facility]YourqgqUESZFIRLIE8671-18-13 20:16:00 Test Item Value Reference Range Interpretation Comments Hgb (test code = Hgb) 12.5 12.0-16.0 [id number] 20:16:00 Test Item Value Reference Range Interpretation Comments RBC (test code = RBC) 4.36 4.20-5.40 [facility] HospitalDycqpwgRXBPFGPTRH8547-76-90 20:16:00 Test Item Value Reference Range Interpretation Comments WBC (test code = WBC) 9.4 3.7-10.4 [facility] HospitalKhdbocjZGZMIRUVZQ8465-44-64 20:16:00 Test Item Value Reference Range Interpretation Comments MPV (test code = MPV) 9.3 7.4-10.4 [facility] Gr[id number] 20:16:00 Test Item Value Reference Range Interpretation Comments Platelet (test code = Platelet) 228 133-[address] [facility] HospitalSwapper TradeBOURB[facility] [id number] 20:16:00 Test Item Value Reference Range Interpretation Comments CK MB Index (test no gt See_Comment [Automate d message] The code = CK MB Index) system w [place] generated this result transmit elvin reference range : <=2.5. The reference range was not used to interpr et this result as holger l/abnormal. [facility] [id number] 20:16:00 Test Item Value Reference Range Interpretation Comments Troponin-I (test code no gt See_Comment [Auto mated message] The = Troponin-I) system which g enerated this result transmit elvin reference range : <=0.40. The reference r fatimah was not used to interpr et this result as holger l/abnormal. [facility] [id number] 20:16:00 Test Item Value Reference Range Interpretation Comments CK MB (test code = CK MB) no gt 0.5-3.6 [facility] [id number] 20:16:00 Test Item Value Reference Range Interpretation Comments Total CK (test code = Total CK) 51 12-[address] [facility]
--- NOTE | 2022-05-31 20:16 | RAD REPORT ---
EXAM DESCRIPTION: RAD - Chest Single View - 05/31/2022 8:09 pm CLINICAL HISTORY: Cough Chest pain. COMPARISON: Chest Single View dated 01/28/2022 FINDINGS: Portable technique limits examination quality. The lungs are grossly clear. The heart is normal in size. No displaced fractures. IMPRESSION: No acute intrathoracic process suspected.
[2022-05-31] MEDS ORDERED: NA CHLORIDE 0.9% 1,000 ML ONE (20:25)
[2022-05-31 20:30] LABS: Absolute Lymphocytes (CBC) 3.1 K/uL (0.7-4.9); Hematocrit 37.8 % (36.0-45.0); Lymphocytes % 35.1 % (15.3-44.8); MPV 8.6 fL (7.6-11.3); RBC Red Blood Cell Count 4.16 M/uL (3.86-4.86)
[2022-05-31 20:47] LABS: Potassium 3.9 mmol/L (3.5-5.1); Troponin High Sensitivity 3.1 pg/mL (<58.9)
[2022-05-31 21:22] LABS: SARS-COV-2 RT PCR POSITIVE (NEGATIVE)
--- NOTE | 2022-05-31 21:51 | ER ---
Nurse's Notes [facility] Name: Zuleyma Daugherty Age: 32 yrs Sex: Female : 1990 Arrival Date: 05/31/2022 Time: 19:40 Bed 3 Private MD: Diagnosis: Chest pain, unspecified;Myalgia;SARS-associated coronavirus as the cause of diseases classified elsewhere Presentation: 05/31 20:01 Chief complaint: Patient states: C/o chest pain, nausea, dizziness, diaphoretic since 9 ll3 AM, states pain is 7/10. Ebola Screen: No symptoms or risks identified at this time. Initial Sepsis Screen: Does the patient meet any 2 criteria? No. Patient's initial sepsis screen is negative. Does the patient have a suspected source of infection? No. Patient's initial sepsis screen is negative. Risk Assessment: Do you want to hurt yourself or someone else? Patient reports no desire to harm self or others. Onset of symptoms was May 31, 2022 at 09:00. 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 20:20 Abuse screen: Denies threats or abuse. Nutritional screening: No deficits noted. jb4 Tuberculosis screening: No symptoms or risk factors identified. Assessment: 20:20 General: Appears in no apparent distress. comfortable, Behavior is calm, cooperative, jb4 appropriate for age. Pain: Complains of pain in chest Pain does not radiate. Pain currently is 7 out of 10 on a pain scale. Quality of pain is described as pressure, Pain began this morning. Neuro: Level of Consciousness is awake, alert, obeys commands, Oriented to person, place, time, situation. Cardiovascular: Patient's skin is warm and dry. Respiratory: Airway is patent Respiratory effort is even, unlabored, Respiratory pattern is regular, symmetrical. GI: No signs and/or symptoms were reported involving the gastrointestinal system. : No signs and/or symptoms were reported regarding the genitourinary system. EENT: No signs and/or symptoms were reported regarding the EENT system. Derm: Skin is intact, Skin is pink, warm \T\ dry. Musculoskeletal: Circulation, motion, and sensation intact. Range of motion: intact in all extremities. 22:14 Reassessment: Patient appears in no apparent distress at this time. Patient and/or jb4 family updated on plan of care and expected duration. Pain level reassessed. Patient is alert, oriented x 3, equal unlabored respirations, skin warm/dry/pink. Vital Signs: 20:01 BP 133 / 94; Pulse 114; Resp 18; Temp 98.8(O); Pulse Ox 100% on R/A; Weight 72.57 kg ll3 (R); Height 5 ft. 5 in. (165.10 cm) (R); Pain 7/10; 20:30 BP 111 / 74; Pulse 86; Resp 16; Pulse Ox 100% on R/A; jb4 21:40 BP 104 / 72; Pulse 89; Resp 17; Pulse Ox 99% ; Pain 0/10; ke1 20:01 Body Mass Index 26.63 (72.57 kg, 165.10 cm) ll3 ED Course: 19:40 Patient arrived in ED. mr 19:44 Virgilio Degroot DO is Attending Physician. ms3 20:03 Triage completed. ll3 20:03 Arm band placed on Patient placed in an exam room, on a stretcher, on pulse oximetry. ll3 EKG completed in triage. Results shown to MD. 20:20 Arpit Borrero, RN is Primary Nurse. ke1 20:20 Initial lab(s) drawn, by me, sent to lab. Inserted saline lock: 18 gauge in right jb4 antecubital area, using aseptic technique. Blood collected. Patient maintains SpO2 saturation greater than 95% on room air. 20:29 COVID-19/FLU A+B Sent. jb4 20:29 Troponin HS Sent. jb4 20:29 CBC with Diff Sent. jb4 20:29 Basic Metabolic Panel Sent. jb4 21:16 Eric Zafar, RN is Primary Nurse. jb4 22:14 Patient has correct armband on for positive identification. Client placed on continuous jb4 cardiac and pulse oximetry monitoring. NIBP monitoring applied. panel monitor on. 22:14 No provider procedures requiring assistance completed. IV discontinued, intact, jb4 bleeding controlled, No redness/swelling at site. Pressure dressing applied. Administered Medications: 20:24 Drug: NS 0.9% 1000 ml Route: IV; Rate: 1000 ml; Site: right antecubital; jb4 22:16 Follow up: Response: No adverse reaction; IV Status: Order to discontinue infusion; jb4 Order to discontinue infusion,Pt discharged; IV Intake: 700ml 22:02 Drug: Ketorolac 10 mg 10 mg Route: IVP; Site: right antecubital; jb4 22:16 Follow up: Response: No adverse reaction jb4 Medication: 20:30 VIS not applicable for this client. jb4 Intake: 22:16 IV: 700ml; Total: 700ml. jb4 Outcome: 21:50 Discharge ordered by MD. ms3 22:14 Discharged to home ambulatory. jb4 22:14 Condition: stable 22:14 Discharge instructions given to patient, Instructed on discharge instructions, follow up and referral plans. Demonstrated understanding of instructions, follow-up care. 22:16 Patient left the ED. jb4 Signatures: Cinthia Yu Green ValleyEric, RN RN jb4 Virgilio Degroot DO DO ms3 Angeli Mason RN RN ll3 Arpit Borrero RN RN ke1 Corrections: (The following items were deleted from the chart) 21:41 21:40 BP 104 / 72; Pulse 89bpm; Resp 17bpm; Pulse Ox 99%; ke1 ke1
--- NOTE | 2022-05-31 21:51 | EDPHYS ---
Physician Documentation [facility] Name: Zuleyma Daugherty Age: 32 yrs Sex: Female : 1990 Arrival Date: 05/31/2022 Time: 19:40 Bed 3 Private MD: ED Physician Virgilio Degroot HPI: 05/31 20:16 This 32 yrs old Female presents to ER via Ambulatory with complaints of Chest Pain, ms3 Dizziness, Headache, Nausea. 20:16 32-year-old female with past medical history of anxiety, depression presents for chest ms3 pain that began this morning. Patient rates her pain a 2-3/10. Patient also endorses headache, dizziness, nausea, chills. Patient denies vomiting, diarrhea, or sick contacts. Patient denies alleviating or inciting factors.. 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 Neck: Negative for injury, pain, and ms3 swelling, Respiratory: Negative for shortness of breath, cough, wheezing, and pleuritic chest pain, MS/Extremity: Negative for injury and deformity, Skin: Negative for injury, rash, and discoloration. 20:16 Cardiovascular: Positive for chest pain. 20:16 Abdomen/GI: Positive for nausea. 20:16 Neuro: Positive for dizziness. 20:16 All other systems are negative. Exam: 20:16 Constitutional: This is a well developed, well nourished patient who is awake, alert, ms3 and in no acute distress. Head/Face: Normocephalic, atraumatic. Chest/axilla: Normal chest wall appearance and motion. Nontender with no deformity. 20:16 Cardiovascular: Rate: tachycardic, Rhythm: regular, Pulses: no pulse deficits are appreciated. 20:16 ECG was reviewed by the Attending Physician. Vital Signs: 20:01 BP 133 / 94; Pulse 114; Resp 18; Temp 98.8(O); Pulse Ox 100% on R/A; Weight 72.57 kg ll3 (R); Height 5 ft. 5 in. (165.10 cm) (R); Pain 7/10; 20:30 BP 111 / 74; Pulse 86; Resp 16; Pulse Ox 100% on R/A; jb4 21:40 BP 104 / 72; Pulse 89; Resp 17; Pulse Ox 99% ; Pain 0/10; ke1 20:01 Body Mass Index 26.63 (72.57 kg, 165.10 cm) ll3 MDM: 19:50 Patient medically screened. ms3 23:26 Differential diagnosis: abnormal EKG, chest wall pain, pleurisy, pneumonia. HEART ms3 Score: History: Slightly Suspicious (0), ECG: Normal (0), Age: < or = 45 years (0), Risk Factors: No Risk Factors Known (0), Troponin: < or = 1 x Normal Limit (0), Total Score = 0. Data reviewed: vital signs, nurses notes, lab test result(s), EKG, radiologic studies, and as a result, I will discharge patient. Counseling: I had a detailed discussion with the patient and/or guardian regarding: the historical points, exam findings, and any diagnostic results supporting the discharge/admit diagnosis, lab results, radiology results, the need for outpatient follow up, to return to the emergency department if symptoms worsen or persist or if there are any questions or concerns that arise at home. ED course: Discussed x-ray, EKG, labs with patient. Patient to follow-up with her primary care physician in 2 to 3 days. Patient understands and agrees with plan. All questions were answered. Return precautions discussed include worsening symptoms, or any other concerns. On reevaluation patient is alert and oriented x4, in no apparent distress, nontoxic, ambulatory in emergency department, speaking full sentences.. 05/31 19:51 Order name: Basic Metabolic Panel ms3 05/31 19:51 Order name: CBC with Diff ms3 05/31 19:51 Order name: Troponin HS ms3 05/31 19:51 Order name: COVID-19/FLU A+B ms3 05/31 20:33 Order name: CBC with Automated Diff; Complete Time: 20:38 EDMS 05/31 20:48 Order name: Basic Metabolic Panel; Complete Time: 21:11 EDMS 05/31 19:51 Order name: XRAY Chest (1 view) ms3 05/31 19:51 Order name: EKG; Complete Time: 19:52 ms3 05/31 19:51 Order name: Cardiac monitoring; Complete Time: 20:29 ms3 05/31 20:17 Order name: RAD; Complete Time: 20:38 EDMS 05/31 20:48 Order name: Troponin High Sensitivity; Complete Time: 21:11 EDMS 05/31 21:23 Order name: COVID-19/FLU A+B; Complete Time: 21:36 EDMS 05/31 19:51 Order name: EKG - Nurse/Tech; Complete Time: 20:29 ms3 05/31 19:51 Order name: IV Saline Lock; Complete Time: 20:29 ms3 05/31 19:51 Order name: Labs collected and sent; Complete Time: 20:29 ms3 05/31 19:51 Order name: O2 Per Protocol; Complete Time: 20:29 ms3 05/31 19:51 Order name: O2 Sat Monitoring; Complete Time: 20:29 ms3 EC:16 Rate is 90 beats/min. Rhythm is regular. QRS [place] is Normal. LA interval is normal. QRS ms3 interval is normal. QT interval is normal. Clinical impression: Normal ECG. Interpreted by me. Reviewed by me. Administered Medications: 20:24 Drug: NS 0.9% 1000 ml Route: IV; Rate: 1000 ml; Site: right antecubital; jb4 22:16 Follow up: Response: No adverse reaction; IV Status: Order to discontinue infusion; jb4 Order to discontinue infusion,Pt discharged; IV Intake: 700ml 22:02 Drug: Ketorolac 10 mg 10 mg Route: IVP; Site: right antecubital; jb4 22:16 Follow up: Response: No adverse reaction jb4 Disposition Summary: 05/31/22 21:50 Discharge Ordered Location: Home ms3 Condition: Stable ms3 Diagnosis - Chest pain, unspecified ms3 - Myalgia ms3 - SARS-associated coronavirus as the cause of diseases classified elsewhere ms3 Discharge Instructions: - Discharge Summary Sheet ms3 - Nonspecific Chest Pain, Adult ms3 - Musculoskeletal Pain ms3 - COVID-19 ms3 Forms: - Medication Reconciliation Form ms3 - Work release form jb4 - Thank You Letter ms3 - Antibiotic Education ms3 - Prescription Opioid Use ms3 Signatures: Dispatcher [employer] EDEric Iniguez, RN RN jb4 Virgilio Degroot DO DO ms3 nAgeli Mason, PRIYANKA RN ll3
[2022-05-31] MEDS ORDERED: KETOROLAC 30 MG/ML INJ ONE (22:03)
[2022-05-31 22:24] VITALS: TEMP 98.8
[2022-05-31 22:26] VITALS: BP 104/72; O2SAT 99
--- NOTE | 2022-06-02 17:18 | EKG ---
Test Date: 2022-05-31 Test Time: 19:58:35 [employer]re [employer] Drier: RV MEASUREMENT RESULTS: Intervals: Rate: 90 AL: 136 QRSD: 90 QT: 358 QTc: 437 [place]: P: 32 AL: 136 QRS: 91 T: 64 INTERPRETIVE STATEMENTS: Normal sinus rhythm Rightward axis Borderline ECG No previous ECG available for comparison Electronically Signed On 06-02-22 17:11:29 MANAGER MOBILITY by Pawel Richey
== END 2022-05-31 22:16 | disposition home or self-care (01) ==
LOC: ER 19:37
DX: U07.1 COVID-19 (principal); M79.10 Myalgia, unspecified site; F32.A Depression, unspecified
CPT/HCPCS: 96361; 85025; 80048; 36415; 84484; 0240U; 71045; 96374; 99285; J7030; 93005